=== PATIENT | male | born 1990 | race Caucasian/White ===

== ENCOUNTER 2020-11-06 08:57 | Outpatient (REF) | payer OTHER, SELFPAY ==
[2020-11-06 10:14] LABS: Glucose Urine UA NEG (NEG); Leukocyte Esterase Urine NEG (NEG); Nitrite Urine NEG (NEG); PH 7.5 (5.0-8.0); Urine Blood NEG (NEG); Urine Ketones NEG (NEG); Urine Protein NEG (NEG-TRACE)
[2020-11-06 10:15] LABS: Appearance Urine CLEAR; Color Urine STRAW
[2020-11-06 10:26] LABS: Anion Gap 10 (12-20); Blood Urea Nitrogen 13 mg/dL (9-16); Carbon Dioxide 27 mmol/L (22-29); Chloride 104 mmol/L (96-108); Cholesterol 194 mg/dL; Estimated Glomerular Filt Rate > 60; Glucose Random 94 mg/dL (60-115); HDL Cholesterol 36 mg/dL; LDL Cholesterol Calculated 137 mg/dl; Potassium 4.2 mmol/L (3.3-5.1); Sodium 137 mmol/L (135-145); Triglycerides 105 mg/dL
[2020-11-06 10:48] LABS: TSH reflex Free T4 0.72 uIU/mL (0.32-4.0)
== END 2020-11-06 08:58 | disposition home or self-care (01) ==
LOC: HO.LAB 08:57
PROVIDERS: PCP Nurse Practitioner Family; Visit Provider Nurse Practitioner Family
DX: Z00.00 Encounter for general adult medical examination without abnormal findings (principal)
CPT/HCPCS: 36415; 80048; 80061; 81003; 84443

== ENCOUNTER 2021-01-08 07:33 | Outpatient (REF) | payer OTHER, SELFPAY ==
[2021-01-08 08:31] LABS: Basophils Percent Auto 0.4 % (0-2); Eosinophils Absolute Auto 0.1 X10*3/uL (0.0-0.4); Eosinophils Percent Auto 1.9 % (0-4); Hematocrit 42.7 % (42-52); Hemoglobin 14.9 g/dl (14.0-18.0); Imm Gran Abs Auto 0.02 X10*3/uL (0.00-0.03); Imm Gran Pct Auto 0.4 % (0.0-0.4); Lymphocytes Absolute Auto 1.8 X10*3/uL (1.2-4.9); Lymphocytes Percent Auto 34.8 % (20-40); MANUAL DIFF FLAG NO; Mean Corpuscular HGB Conc 34.9 g/dl (31.0-36.0); Mean Corpuscular Hemoglobin 27.9 pg (27.0-33.0); Mean Corpuscular Volume 79.8 fL (80-98); Mean Platelet Volume 9.2 fL (9.4-12.4); Monocytes Absolute Auto 0.7 X10*3/uL (0.1-1.2); Monocytes Percent Auto 13.7 % (2-11); Neutrophils Absolute Auto 2.5 X10*3/uL (2.0-8.3); Neutrophils Percent Auto 48.8 % (45-73); Platelet Count 225 X10*3/uL (160-400); Red Blood Count 5.35 X10*6/uL (4.60-5.80); Red Cell Distribution Width 12.2 % (11.0-16.0); White Blood Count 5.2 X10*3/uL (4.8-10.8)
[2021-01-08 09:21] LABS: Alanine Aminotransferase 82 U/L (0-40); Albumin Level 4.3 g/dL (3.5-5.0); Alkaline Phosphatase 66 U/L (39-117); Anion Gap 11 (12-20); Aspartate Amino Transferase 38 U/L (5-37); Bilirubin Total 1.1 mg/dL (0.0-1.0); Blood Urea Nitrogen 12 mg/dL (9-16); Carbon Dioxide 28 mmol/L (22-29); Chloride 104 mmol/L (96-108); Estimated Glomerular Filt Rate > 60; Glucose Random 99 mg/dL (60-115); Lipase 33 U/L (8-78); Potassium 4.1 mmol/L (3.3-5.1); Sodium 139 mmol/L (135-145); Total Protein 7.2 g/dL (6.5-8.0)
== END 2021-01-08 07:34 | disposition home or self-care (01) ==
LOC: HO.LAB 07:33
PROVIDERS: PCP Nurse Practitioner Family; Visit Provider Hospitalist
DX: R10.32 Left lower quadrant pain (principal)
CPT/HCPCS: 36415; 80053; 83690; 85025

== ENCOUNTER 2021-01-26 06:04 | Outpatient (REF) | payer OTHER, SELFPAY ==
--- NOTE | ~2021-01-26 | CT_ITS ---
EXAMINATION: CT ABDOMEN AND PELVIS WITH CONTRAST CLINICAL INFORMATION: Left lower quadrant pain COMPARISON: None TECHNIQUE: Multidetector volumetric images were obtained from the superior aspect of the liver through the pubic symphysis following administration 85 mL of Omnipaque 350 intravenous contrast. Sagittal and coronal reformatted images were obtained on the technologist's workstation. Oral contrast: Yes This CT examination was performed using dose optimization techniques as appropriate, variously including the following: *Automated exposure control *Adjustment of mA and/or kV according to patient size (this includes techniques or standardized protocols for targeted exams where dose is matched to indication/reason for exam; i.e. extremities or head) *Use of iterative reconstruction technique DLP: 821 mGy-cm FINDINGS: LUNG BASES: The visualized lung bases are unremarkable. LIVER, GALLBLADDER, AND BILIARY TREE: The liver is normal in size, shape, and attenuation. No focal hepatic lesion or biliary ductal dilatation is present. The gallbladder is unremarkable with no evidence of radiopaque gallstones, gallbladder wall thickening, or obvious pericholecystic inflammatory changes. PANCREAS: Unremarkable. SPLEEN: The spleen is slightly enlarged measuring 14 cm in length. ADRENAL GLANDS: Unremarkable. KIDNEYS AND URETERS: The kidneys are normal in size, shape, and attenuation. No hydronephrosis, hydroureter, or calculi seen. No perinephric stranding. BLADDER: Unremarkable. GASTROINTESTINAL TRACT: The small and large bowel are unremarkable. The appendix is unremarkable. ABDOMINAL WALL: There is a small umbilical hernia containing fat. LYMPH NODES: Normal. VASCULAR: Unremarkable. PELVIC VISCERA: Unremarkable. OSSEOUS STRUCTURES: Unremarkable. CT/CT abdomen pelvis w con IMPRESSION: Slightly enlarged spleen measuring 14 cm in length. Small umbilical hernia containing fat..
[2021-01-26] MEDS: iohexoL 350 MG/ML 100 ML INFUS..BTL IV (09:33)
[2021-01-26] MEDS: Barium Sulfate Oral (Mocha) 450 ML ORAL.SUSP 900 ML PO (09:34)
== END 2021-01-26 06:05 | disposition home or self-care (01) ==
LOC: HO.CT 06:04
PROVIDERS: Visit Provider Hospitalist
DX: R10.32 Left lower quadrant pain (principal)
CPT/HCPCS: 74177; Q9967

== ENCOUNTER 2021-07-09 07:22 | Outpatient (REF) | payer OTHER, SELFPAY ==
[2021-07-09 07:41] LABS: Appearance Urine CLEAR; Color Urine YELLOW; Glucose Urine UA NEG (NEG); Leukocyte Esterase Urine NEG (NEG); Nitrite Urine NEG (NEG); Specific Gravity - Urine 1.015 (1.005-1.025); Urine Blood NEG (NEG); Urine Ketones NEG (NEG); Urine Protein NEG (NEG-TRACE)
[2021-07-09 09:18] LABS: Alanine Aminotransferase 87 U/L (0-40); Albumin Level 4.4 g/dL (3.5-5.0); Alkaline Phosphatase 68 U/L (39-117); Anion Gap 10 (12-20); Aspartate Amino Transferase 33 U/L (5-37); Bilirubin Total 0.7 mg/dL (0.0-1.0); Blood Urea Nitrogen 13 mg/dL (9-16); Calcium 8.6 mg/dL (8.4-10.2); Carbon Dioxide 29 mmol/L (22-29); Chloride 104 mmol/L (96-108); Cholesterol 169 mg/dL; Estimated Glomerular Filt Rate > 60; Glucose Fasting 95 mg/dL (60-99); HDL Cholesterol 30 mg/dL; LDL Cholesterol Calculated 114 mg/dl; Potassium 4.3 mmol/L (3.3-5.1); Sodium 139 mmol/L (135-145); Total Protein 7.1 g/dL (6.5-8.0); Triglycerides 127 mg/dL
[2021-07-09 09:43] LABS: TSH reflex Free T4 1.05 uIU/mL (0.32-4.0)
== END 2021-07-09 07:23 | disposition home or self-care (01) ==
LOC: HO.LAB 07:22
PROVIDERS: PCP Nurse Practitioner Family; Visit Provider Nurse Practitioner Family
DX: Z00.00 Encounter for general adult medical examination without abnormal findings (principal)
CPT/HCPCS: 36415; 80053; 80061; 81003; 84443

== ENCOUNTER 2021-07-23 08:56 | Outpatient (REF) | payer OTHER, SELFPAY ==
[2021-07-25 03:42] LABS: HBS Num1 3.84 mIU/mL (0-7.99); HBc Num1 0.09 S/CO (0.00-0.79); HBsAGNum1 0.17 S/CO (0.00-0.99); Hepatitis B Core Antibody Nonreactive (Nonreactive); Hepatitis B Surface Antigen Negative (Negative); ~Hepatitis B Surface Antibody NONREACTIVE (Nonreactive)
[2021-07-25 03:52] LABS: ~HepC Num1 0.08 S/CO (0.00-0.79); ~Hepatitis C Antibody Nonreactive (Nonreactive)
[2021-07-25 04:31] LABS: Folate 16.7 ng/mL (> or = 4.0); Vitamin B12 320 pg/mL (200-900)
[2021-07-27 09:09] LABS: Hepatitis A Antibody IgM 0.13 Index (0-0.79); ~Hepatitis A Antibody IgM Nonreactive (Nonreactive)
== END 2021-07-23 08:57 | disposition home or self-care (01) ==
LOC: HO.LAB 08:56
PROVIDERS: PCP Nurse Practitioner Family; Visit Provider Nurse Practitioner Family
DX: R74.8 Abnormal levels of other serum enzymes (principal); E53.8 Deficiency of other specified B group vitamins
CPT/HCPCS: 36415; 82607; 82746; 86704; 86706; 86709; 86803; 87340

== ENCOUNTER 2021-08-12 08:26 | Outpatient (REF) | payer OTHER, SELFPAY ==
--- NOTE | ~2021-08-12 | US_ITS ---
EXAMINATION: US ABDOMEN COMPLETE CLINICAL INFORMATION: Elevated liver enzymes. COMPARISON: None TECHNIQUE: Real-time imaging of the abdominal viscera. FINDINGS: PANCREAS: Normal. ABDOMINAL AORTA: The proximal, mid, and distal segments are normal in caliber. INFERIOR VENA CAVA: Visualized portions are normal. LIVER: Normal. The liver is normal in size. The liver contour is normal. Parenchymal echogenicity is normal. No focal hepatic lesion. There is no intrahepatic biliary duct dilatation seen. GALLBLADDER: There is an impacted stone in the neck of the gallbladder measuring 1.7 x 1.3 x 1.8 cm. The gallbladder is otherwise unremarkable in appearance with no wall thickening or pericholecystic fluid. COMMON BILE DUCT: Normal in caliber measuring 0.3 cm in diameter. RIGHT KIDNEY: Normal. No hydronephrosis. No renal calculi or focal parenchymal lesions. The kidney measures 12.1 cm in maximum dimension. LEFT KIDNEY: Normal. No hydronephrosis. No renal calculi or focal parenchymal lesions. The kidney measures 13.1 cm in maximum dimension. SPLEEN: Normal. The spleen measures 12.9 cm in maximum dimension. FREE FLUID: None. US/US abdomen complete IMPRESSION: 1. Cholelithiasis with single gallstone impacted in the gallbladder neck. No evidence for acute cholecystitis. 2. No other abnormality.
== END 2021-08-12 08:27 | disposition home or self-care (01) ==
LOC: HO.HMGCX 08:26
PROVIDERS: PCP Nurse Practitioner Family; Visit Provider Nurse Practitioner Family
DX: R74.8 Abnormal levels of other serum enzymes (principal)
CPT/HCPCS: 76700

== ENCOUNTER → 2021-09-19 15:46 | Outpatient (BNVA) | payer OTHER, SELFPAY | PROVIDERS: PCP Nurse Practitioner Family; Referring Provider Nurse Practitioner Family; Visit Provider Surgery ==

== ENCOUNTER 2021-10-15 08:08 | Outpatient (REF) | payer OTHER, SELFPAY ==
[2021-10-15 08:38] LABS: MANUAL DIFF FLAG NO
[2021-10-15 09:47] LABS: Basophils Percent Auto 0.4 % (0-2); Eosinophils Absolute Auto 0.1 X10*3/uL (0.0-0.4); Eosinophils Percent Auto 2.1 % (0-4); Hematocrit 43.5 % (42.0-52.0); Imm Gran Abs Auto 0.02 X10*3/uL (0.00-0.03); Imm Gran Pct Auto 0.3 % (0.0-0.4); Lymphocytes Absolute Auto 2.3 X10*3/uL (1.2-4.9); Lymphocytes Percent Auto 33.3 % (20-40); Mean Corpuscular HGB Conc 34.5 g/dl (31.0-36.0); Mean Corpuscular Hemoglobin 27.9 pg (27.0-33.0); Mean Platelet Volume 9.2 fL (9.4-12.4); Monocytes Absolute Auto 0.8 X10*3/uL (0.1-1.2); Monocytes Percent Auto 12.4 % (2-11); Neutrophils Absolute Auto 3.5 x10*3/uL (2.0-8.3); Neutrophils Percent Auto 51.5 % (45-73); Platelet Count 210 X10*3/uL (160-400); Red Blood Count 5.37 X10*6/uL (4.60-5.80); Red Cell Distribution Width 12.2 % (11.0-16.0); White Blood Count 6.8 X10*3/uL (4.8-10.8)
[2021-10-15 10:15] LABS: Alanine Aminotransferase 29 U/L (0-40); Albumin Level 4.1 g/dL (3.5-5.0); Alkaline Phosphatase 62 U/L (39-117); Anion Gap 11 (12-20); Aspartate Amino Transferase 16 U/L (5-37); Bilirubin Total 0.5 mg/dL (0.0-1.0); Blood Urea Nitrogen 13 mg/dL (9-16); Calcium 9.1 mg/dL (8.4-10.2); Carbon Dioxide 26 mmol/L (22-29); Chloride 105 mmol/L (96-108); Estimated Glomerular Filt Rate > 60; Glucose Fasting 93 mg/dL (60-99); Lipase 23 U/L (8-78); Potassium 4.2 mmol/L (3.3-5.1); Sodium 138 mmol/L (135-145); Total Protein 6.9 g/dL (6.5-8.0)
[2021-10-17 09:38] LABS: Folate 14.6 ng/mL (> or = 4.0); Vitamin B12 286 pg/mL (200-900)
== END 2021-10-15 08:09 | disposition home or self-care (01) ==
LOC: HO.LAB 08:08
PROVIDERS: Visit Provider Nurse Practitioner Family
DX: K80.20 Calculus of gallbladder without cholecystitis without obstruction (principal); E53.8 Deficiency of other specified B group vitamins
CPT/HCPCS: 36415; 80053; 82607; 82746; 83690; 85025

== ENCOUNTER 2022-02-11 08:19 | Outpatient (REF) | payer OTHER, SELFPAY ==
[2022-02-11 09:30] LABS: Appearance Urine CLEAR; Color Urine YELLOW; Glucose Urine UA NEG (NEG); Leukocyte Esterase Urine NEG (NEG); Nitrite Urine NEG (NEG); Specific Gravity - Urine 1.015 (1.005-1.025); Urine Blood NEG (NEG); Urine Ketones NEG (NEG); Urine Protein NEG (NEG-TRACE)
[2022-02-11 09:30] LABS: Alanine Aminotransferase 68 U/L (0-40); Alkaline Phosphatase 61 U/L (39-117); Anion Gap 10 (12-20); Aspartate Amino Transferase 27 U/L (5-37); Bilirubin Total 0.8 mg/dL (0.0-1.0); Blood Urea Nitrogen 12 mg/dL (9-16); Calcium 8.9 mg/dL (8.4-10.2); Carbon Dioxide 27 mmol/L (22-29); Chloride 105 mmol/L (96-108); Cholesterol 179 mg/dL; Estimated Glomerular Filt Rate > 60; Glucose Fasting 100 mg/dL (60-99); HDL Cholesterol 31 mg/dL; LDL Cholesterol Calculated 116 mg/dl; Potassium 4.2 mmol/L (3.3-5.1); Sodium 138 mmol/L (135-145); Total Protein 6.8 g/dL (6.5-8.0); Triglycerides 164 mg/dL
[2022-02-11 09:53] LABS: TSH reflex Free T4 0.82 uIU/mL (0.32-4.0)
[2022-02-13 16:32] LABS: Follicle Stimulating Hormone 4.4 mIU/mL (1.6-8.0); Lutenizing Hormone 2.6 mIU/mL (1.5-9.3)
[2022-02-16 19:27] LABS: Testosterone, Free 69.7 pg/mL (35.0-155.0); Testosterone, Total 335 ng/dL (250-1100)
== END 2022-02-11 08:20 | disposition home or self-care (01) ==
LOC: HO.LAB 08:19
PROVIDERS: PCP Nurse Practitioner Family; Visit Provider Nurse Practitioner Family
DX: I10 Essential (primary) hypertension (principal); N52.9 Male erectile dysfunction, unspecified
CPT/HCPCS: 36415; 80053; 80061; 81003; 83001; 83002; 84402; 84403; 84443

== ENCOUNTER 2022-07-15 08:51 | Outpatient (REF) | payer OTHER, SELFPAY ==
[2022-07-15 09:43] LABS: MANUAL DIFF FLAG NO
[2022-07-15 10:30] LABS: Appearance Urine Clear; Color Urine Yellow; Glucose Urine UA Negative (Negative); Leukocyte Esterase Urine Negative (Negative); Nitrite Urine Negative (Negative); PH 6.5 (5.0-9.0); Specific Gravity - Urine 1.015 (1.005-1.025); Urine Blood Negative (Negative); Urine Ketones Negative (Negative); Urine Protein Negative (Neg-Trace)
[2022-07-15 11:27] LABS: Basophils Percent Auto 0.4 % (0-2); Eosinophils Absolute Auto 0.1 X10*3/uL (0.0-0.4); Eosinophils Percent Auto 2.4 % (0-4); Hemoglobin 14.6 g/dl (14.0-18.0); Imm Gran Abs Auto 0.02 X10*3/uL (0.00-0.03); Imm Gran Pct Auto 0.4 % (0.0-0.4); Lymphocytes Absolute Auto 1.8 X10*3/uL (1.2-4.9); Lymphocytes Percent Auto 33.3 % (20-40); Mean Corpuscular HGB Conc 35.6 g/dl (31.0-36.0); Mean Corpuscular Hemoglobin 28.2 pg (27.0-33.0); Mean Corpuscular Volume 79.3 fL (80.0-98.0); Mean Platelet Volume 9.2 fL (9.4-12.4); Monocytes Absolute Auto 0.8 X10*3/uL (0.1-1.2); Monocytes Percent Auto 14.1 % (2-11); Neutrophils Absolute Auto 2.7 x10*3/uL (2.0-8.3); Neutrophils Percent Auto 49.4 % (45-73); Platelet Count 224 X10*3/uL (160-400); Red Blood Count 5.17 X10*6/uL (4.60-5.80); White Blood Count 5.4 X10*3/uL (4.8-10.8)
[2022-07-15 12:50] LABS: Alanine Aminotransferase 35 U/L (0-40); Albumin Level 4.2 g/dL (3.5-5.0); Alkaline Phosphatase 61 U/L (39-117); Anion Gap 14 (12-20); Aspartate Amino Transferase 23 U/L (5-37); Bilirubin Total 0.7 mg/dL (0.0-1.0); Blood Urea Nitrogen 14 mg/dL (9-16); Calcium 8.8 mg/dL (8.4-10.2); Carbon Dioxide 26 mmol/L (22-29); Chloride 103 mmol/L (96-108); Cholesterol 190 mg/dL; Estimated Glomerular Filt Rate > 60; Glucose Fasting 93 mg/dL (60-99); HDL Cholesterol 34 mg/dL; LDL Cholesterol Calculated 129 mg/dl; Sodium 139 mmol/L (135-145); Triglycerides 137 mg/dL
[2022-07-15 12:54] LABS: TSH reflex Free T4 1.26 uIU/mL (0.32-4.0)
== END 2022-07-15 08:52 | disposition home or self-care (01) ==
LOC: HO.LAB 08:51
PROVIDERS: PCP Nurse Practitioner Family; Visit Provider Nurse Practitioner Family
DX: Z00.00 Encounter for general adult medical examination without abnormal findings (principal)
CPT/HCPCS: 36415; 80053; 80061; 81003; 84443; 85025

== ENCOUNTER 2022-11-26 07:11 | Emergency (ER) | payer OTHER, SELFPAY ==
--- NOTE | ~2022-11-26 | US_ITS ---
EXAMINATION: US ABDOMEN COMPLETE CLINICAL INFORMATION: Upper abdominal pain. COMPARISON: Ultrasound abdomen complete 08/12/2021. TECHNIQUE: Real-time imaging of the abdominal viscera. FINDINGS: PANCREAS: The pancreas is obscured by overlying gas. ABDOMINAL AORTA: The proximal, mid, and distal segments are normal in caliber. INFERIOR VENA CAVA: Visualized portions are normal. LIVER: Normal. The liver is normal in size. The liver contour is normal. Parenchymal echogenicity is normal. No focal hepatic lesion. There is no intrahepatic biliary duct dilatation seen. GALLBLADDER: There are multiple echogenic stones in the neck of gallbladder, nonmobile. Gallbladder wall thickness is 0.2 cm. There are small echogenic areas along the inner gallbladder wall suspicious for adenomyomatosis. No pericholecystic fluid collection. COMMON BILE DUCT: Normal in caliber measuring 0.5 cm in diameter. RIGHT KIDNEY: Normal. No hydronephrosis. No renal calculi or focal parenchymal lesions. The kidney measures 13.0 cm in maximum dimension. LEFT KIDNEY: Normal. No hydronephrosis. No renal calculi or focal parenchymal lesions. The kidney measures 13.3 cm in maximum dimension. SPLEEN: The spleen measures 14.3 cm in maximum dimension. It appears unremarkable. FREE FLUID: None. US/US abdomen complete IMPRESSION: 1. Cholelithiasis with an impacted stone in the neck of the gallbladder. Similar findings were seen on a previous ultrasound 08/12/2021. 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 2. Borderline spleen measuring 14.3 cm.
[2022-11-26 07:21] VITALS: BP 152/82; PULSE 110; RESP 18; TEMP 36.7; O2SAT 98; BMI 48.5
[2022-11-26 07:50] LABS: MANUAL DIFF FLAG NO
[2022-11-26 07:51] LABS: Basophils Percent Auto 0.1 % (0-2); Eosinophils Percent Auto 0.1 % (0-4); Hematocrit 41.6 % (42.0-52.0); Hemoglobin 14.4 g/dl (14.0-18.0); Imm Gran Abs Auto 0.03 X10*3/uL (0.00-0.03); Imm Gran Pct Auto 0.4 % (0.0-0.4); Lymphocytes Absolute Auto 1.1 X10*3/uL (1.2-4.9); Lymphocytes Percent Auto 14.5 % (20-40); Mean Corpuscular HGB Conc 34.6 g/dl (31.0-36.0); Mean Corpuscular Hemoglobin 27.4 pg (27.0-33.0); Mean Corpuscular Volume 79.1 fL (80.0-98.0); Mean Platelet Volume 8.7 fL (9.4-12.4); Monocytes Absolute Auto 1.1 X10*3/uL (0.1-1.2); Monocytes Percent Auto 14.6 % (2-11); Neutrophils Absolute Auto 5.2 x10*3/uL (2.0-8.3); Neutrophils Percent Auto 70.3 % (45-73); Platelet Count 167 X10*3/uL (160-400); Red Blood Count 5.26 X10*6/uL (4.60-5.80); Red Cell Distribution Width 12.6 % (11.0-16.0); White Blood Count 7.5 X10*3/uL (4.8-10.8)
[2022-11-26 08:09] LABS: Anion Gap 13 (12-20); Blood Urea Nitrogen 14 mg/dL (9-16); Calcium 8.1 mg/dL (8.4-10.2); Carbon Dioxide 23 mmol/L (22-29); Chloride 106 mmol/L (96-108); Creatinine Clr Calc Pharmacy 174.9; Estimated Glomerular Filt Rate > 60; Glucose Random 121 mg/dL (60-115); Potassium 3.7 mmol/L (3.3-5.1); Sodium 138 mmol/L (135-145)
--- NOTE | 2022-11-26 08:10 | ED_ITS ---
HPI - Abdominal Pain General Chief Complaint: Abdominal Pain Stated Complaint: gallbladder issues Time Seen by Provider: 11/26/22 08:00 Source: patient and old records reviewed (Reviewed the patient's visit on 09/19/2021 here in the ER and the general surgical note from Dr. Cassidy) Mode of arrival: ambulatory Limitations: no limitations History of Present Illness HPI narrative: 32yoM with a PMHx of anemia, hypertension, low vitamin B12 level, obesity, sleep apnea and impacted gallstones without cholecystitis since July of 2021 who is presenting to the ER with complaints of nausea/vomiting with right upper quadrant/epigastric abdominal pain with diarrhea that started yesterday. Reports that he had a GI bug yesterday nausea vomiting has resolved at this time. He continues with some diarrhea today although the right upper quadrant/epigastric abdominal pain continues. He is concerned that it could be acute cholecystitis at this time. He admits to some sore throat and a dry cough. He denies any fevers, headaches, dizziness, nasal congestion/rhinorrhea, chest pain or shortness of breath, radiation of the abdominal pain, flank pain, dysuria, hematuria, black or bloody stools, constipation, recent travel or sick contacts or any other symptoms complaints or concerns at this time. MD elicited complaint: abdominal pain Pertinent past history: other (Impacted gallstones since July 2021) Onset (ago): day(s) (2) Pain Consistency: constant Location: epigastric and RUQ Severity: moderate Quality: aching Radiation: none Migration to: no migration Exacerbating factors: vomiting Relieving factors: nothing Associated symptoms: nausea, vomiting, diarrhea and other (Throat irritation dry cough) Related Data Home Medications Medication Instructions Recorded Confirmed cetirizine 10 mg tablet (Zyrtec) 10 mg PO DAILY PRN 07/10/22 Previous Rx's Medication Instructions Recorded lisinopril 40 mg tablet 40 mg PO DAILY 90 days #90 tabs 07/18/22 erythromycin 5 mg/gram (0.5 %) eye 1 appl ophthalmic-Right BID 5 days 10/14/22 ointment #3.5 grams sildenafil 25 mg tablet 25 mg PO DAILY PRN sexual activity 10/15/22 10 days #10 tabs acetaminophen 300 mg-codeine 30 mg 1 tab PO Q8H PRN pain #14 tabs 11/26/22 tablet ondansetron HCl 4 mg tablet 4 mg PO Q8H #14 tabs 11/26/22 Allergies Allergy/AdvReac Type Severity Reaction Status Date / Time No Known Allergies Allergy Verified 10/14/22 11:33 Review of Systems Review of Systems Constitutional : No Fever, No Chills, No Night Sweats, No Fatigue, No Malaise, + throat irritation from vomiting, Cardiovascular : No Chest Pain, No SOB Respiratory : + Cough, No Sputum, No Wheezing, No Dyspnea Gastrointestinal : + Nausea, + Vomiting, + Diarrhea, + abdominal Pain, No Hematochezia, No Melena Genitourinary : No irregular bleeding, No Dysuria, No Urinary Frequency, No Hematuria,No Urinary Incontinence, No Urgency, No Flank Pain Musculoskeletal : No joint pain, No Myalgias, No Joint Swelling Skin : No Skin Lesions, No rash Neuro : No Weakness, No Numbness, No Paresthesias, No Loss of Consciousness, No Dizziness, No Headache Heme/Lymph: No Lymphadenopathy Endocrine : No Temperature Intolerance Yes all other systems are reviewed and are negative [facility] Past Medical History Attestation statement: The following information was validated with the patient. Source: old records reviewed and nursing notes reviewed Medical History Anemia Gallstone (impacted) Gallstones HTN (hypertension) Low vitamin B12 level Obesity Sleep apnea Surgical History Cysts Hernia Family History Family History Father No problems noted. Mother No problems noted. Brother No problems noted. 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 Pulse 110. Respiration 18. Temperature 98.1 degrees. Oxygen 98% on room air. Appearance: Alert. Oriented X3. No acute distress. Head: Normal external exam. Normocephalic. Eyes: PERRLA. EOMI. Conjunctiva and sclera normal. Eyelids normal. ENT: Pharynx normal. Uvula midline. Moist mucous membranes. No trismus noted. No drooling noted. No muffled voice noted. Neck: Normal inspection. Neck supple. FROM. No adenopathy. No meningeal signs. CVS: Normal heart rate and rhythm. Heart sound normal. No murmurs noted. Pulses normal throughout. Respiratory: No respiratory distress. Painless inspiration. Breath sounds normal. No wheezes/rales/rhonchi noted. Chest nontender. No accessory muscle usage noted or decreased air movement noted. Abdomen: Soft and mild tenderness palpation to the epigastric/right upper quadrant with guarding. Nondistended. No rigidity. Bowel sounds normal in all 4 quadrants. No distention noted. No organomegaly noted. No visible injury noted. No rebound tenderness. Negative Rovsing sign. Negative obturator's sign. Negative psoas sign. Negative Trejo sign. Back: No CVA tenderness. Full range of motion noted. Skin: Skin warm and dry. Normal skin color. Normal skin turgor. No rashes/lesions/lacerations noted. Extremities: Extremities exhibit normal range of motion. Extremities nontender. Neuro: Oriented X 3. No motor deficit. No sensory deficit. Reflexes normal. Normal steady gait. CN's II-XII intact bilaterally? Course Course Course Narrative: 8am - 32yoM with a PMHx of anemia, hypertension, low vitamin B12 level, obesity, sleep apnea and impacted gallstones without cholecystitis since July of 2021 who is presenting to the ER with complaints of nausea/vomiting with right upper quadrant/epigastric abdominal pain with diarrhea that started yesterday. Reports that he had a GI bug yesterday nausea vomiting has resolved at this time. He continues with some diarrhea today although the right upper quadrant/epigastric abdominal pain continues. He is concerned that it could be acute cholecystitis at this time. He admits to some sore throat and a dry cough. This patient presents with abdominal pain, most consistent with acute, uncom plicated biliary colic versus acute cholecystitis. Patient is afebrile and not jaundiced or altered, lowering my suspicion for cholangitis. Presentation not consistent with acute pancreatitis at this time. Low suspicion for bowel obstruction, viscus perforation, vascular catastrophe, or atypical appendicitis. Presentation not consistent with other acute, emergent causes of abdominal pain at this time. Labs were obtained while the patient was in the waiting room - random glucose 121. - calcium 8.1. - total bilirubin 1.2 this is elevated when compared to prior - CRP 11.23 - total protein 6.3 Otherwise all other labs are within normal limits although I added LFTs, lipase, ESR, CRP and UA. At this time Plan for formal RUQ U/S to evaluate gallbladder pathology. Reevaluation(s) Reevaluation #1: Abdominal ultrasound revealed cholelithiasis with the impacted stone in the neck of the gallbladder. Similar is were seen on previous ultrasound on 08/12/2021. 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 2. Borderline spleen measuring 14.3 cm. Therefore I consulted with the general surgeon Dr. Arciniega and she recommended discharging the patient home for outpatient nonemergent gallbladder removal. I also educated the patient about obesity and following up with bariatric surgeon although patient is not interested in bariatric surgery or any type of weight loss surgery he reports. Therefore at this time patient's pain is controlled I did not have to give him here anything for pain will DC home with some pain control and with instructions to follow-up with the general surgeon Dr. Cassidy for outpatient gallbladder removal if indicated. Patient understands agrees with this plan. Time: 12:13 Medical Decision Making Differential Diagnosis Differential Diagnoses: The differential diagnosis associated with the presentation includes (see course) Admission/Observation Consideration of admission/observation: Escalation of care including ad mission/observation considered (I did consider admission although the general surgeon does not believe he needs admission at this time due to he has been dealing with this since July and it is not acute cholecystitis at this time.) Lab Data MDM Lab Attestation statement: I reviewed the patient's lab results. 11/26/22 07:46 11/26/22 07:46 Labs: Lab Results 11/26/22 11/26/22 11/26/22 Range/Units 07:46 07:46 07:46 WBC 7.5 (4.8-10.8) X10*3/uL RBC 5.26 (4.60-5.80) X10*6/uL Hgb 14.4 (14.0-18.0) g/dl Hct 41.6 L (42.0-52.0) % MCV 79.1 L (80.0-98.0) fL MCH 27.4 (27.0-33.0) pg MCHC 34.6 (31.0-36.0) g/dl RDW 12.6 (11.0-16.0) % Plt Count 167 D (160-400) X10*3/uL MPV 8.7 L (9.4-12.4) fL Immature Gran % (Auto) 0.4 (0.0-0.4) % Neut % (Auto) 70.3 (45-73) % Lymph % (Auto) 14.5 L (20-40) % [place] % (Auto) 14.6 H (2-11) % Eos % (Auto) 0.1 (0-4) % Baso % (Auto) 0.1 (0-2) % Lymph # (Auto) 1.1 L (1.2-4.9) X10*3/uL [place] # (Auto) 1.1 (0.1-1.2) X10*3/uL Eos # (Auto) 0.0 (0.0-0.4) X10*3/uL Baso # (Auto) 0.0 (0.0-0.2) X10*3/uL Abs Immat Gran (auto) 0.03 (0.00-0.03) X10*3/uL Absolute Neuts (auto) 5.2 (2.0-8.3) x10*3/uL Absolute Nucleated RBC 0.000 (0.0-0.012) X10*3/uL Nucleated RBC % (auto) 0.0 (0.0-0.2) /100WBC ESR 8 (0-15) MM/HR Sodium 138 (135-145) mmol/L Potassium 3.7 (3.3-5.1) mmol/L Chloride 106 (96-108) mmol/L Carbon Dioxide 23 (22-29) mmol/L Anion Gap 13 (12-20) BUN 14 (9-16) mg/dL Creatinine 0.83 (0.5-1.4) mg/dL Estim Creat Clear Calc 174.9 Estimated GFR > 60 Random Glucose 121 H (60-115) mg/dL Calcium 8.1 L D (8.4-10.2) mg/dL Magnesium 1.6 (1.6-2.6) mg/dL Total Bilirubin 1.2 H (0.0-1.0) mg/dL Direct Bilirubin 0.4 (0.0-0.5) mg/dL AST 21 (5-37) U/L ALT 30 (0-40) U/L Alkaline Phosphatase 57 (39-117) U/L C-Reactive Protein 11.23 H (< or = 0.50) mg/dL Total Protein 6.3 L (6.5-8.0) g/dL Albumin 3.7 (3.5-5.0) g/dL Lipase 13 (8-78) U/L Urine Color Urine Appearance Urine pH (5.0-9.0) Ur Specific [place] (1.005-1.025) Urine Protein (Neg-Trace) mg/dL Urine Glucose (UA) (Negative) mg/dL Urine Ketones (Negative) mg/dL Urine Blood (Negative) Urine Nitrite (Negative) Ur Leukocyte Esterase (Negative) Influenza Type A (PCR) (Negative) Influenza Type B (PCR) (Negative) RSV RNA Qual (PCR) (Negative) SARS-CoV-2 RNA (RT-PCR) (Negative) 11/26/22 11/26/22 Range/Units 08:29 08:29 WBC (4.8-10.8) X10*3/uL RBC (4.60-5.80) X10*6/uL Hgb (14.0-18.0) g/dl Hct (42.0-52.0) % MCV (80.0-98.0) fL MCH (27.0-33.0) pg MCHC (31.0-36.0) g/dl RDW (11.0-16.0) % Plt Count (160-400) X10*3/uL MPV (9.4-12.4) fL Immature Gran % (Auto) (0.0-0.4) % Neut % (Auto) (45-73) % Lymph % (Auto) (20-40) % [place] % (Auto) (2-11) % Eos % (Auto) (0-4) % Baso % (Auto) (0-2) % Lymph # (Auto) (1.2-4.9) X10*3/uL [place] # (Auto) (0.1-1.2) X10*3/uL Eos # (Auto) (0.0-0.4) X10*3/uL Baso # (Auto) (0.0-0.2) X10*3/uL Abs Immat Gran (auto) (0.00-0.03) X10*3/uL Absolute Neuts (auto) (2.0-8.3) x10*3/uL Absolute Nucleated RBC (0.0-0.012) X10*3/uL Nucleated RBC % (auto) (0.0-0.2) /100WBC ESR (0-15) MM/HR Sodium (135-145) mmol/L Potassium (3.3-5.1) mmol/L Chloride (96-108) mmol/L Carbon Dioxide (22-29) mmol/L Anion Gap (12-20) BUN (9-16) mg/dL Creatinine (0.5-1.4) mg/dL Estim Creat Clear Calc Estimated GFR Random Glucose (60-115) mg/dL Calcium (8.4-10.2) mg/dL Magnesium (1.6-2.6) mg/dL Total Bilirubin (0.0-1.0) mg/dL Direct Bilirubin (0.0-0.5) mg/dL AST (5-37) U/L ALT (0-40) U/L Alkaline Phosphatase (39-117) U/L C-Reactive Protein (< or = 0.50) mg/dL Total Protein (6.5-8.0) g/dL Albumin (3.5-5.0) g/dL Lipase (8-78) U/L Urine Color Yellow Urine Appearance Clear Urine pH 6.5 (5.0-9.0) Ur Specific [place] <= 1.005 (1.005-1.025) Urine Protein Negative (Neg-Trace) mg/dL Urine Glucose (UA) Negative (Negative) mg/dL Urine Ketones Negative (Negative) mg/dL Urine Blood Negative (Negative) Urine Nitrite Negative (Negative) Ur Leukocyte Esterase Negative (Negative) Influenza Type A (PCR) NEGATIVE (Negative) Influenza Type B (PCR) NEGATIVE (Negative) RSV RNA Qual (PCR) NEGATIVE (Negative) SARS-CoV-2 RNA (RT-PCR) NEGATIVE (Negative) Independent Interpretation I performed an independent interpretation of an: Ultrasound (Ultrasound reviewed and I agree with the radiologist's report) Radiology Impression Discussion of test interpretation with radiology: I have reviewed the radiologist's reading. Radiologist Impression: FINDINGS: PANCREAS: The pancreas is obscured by overlying gas. ABDOMINAL AORTA: The proximal, mid, and distal segments are normal in caliber. INFERIOR VENA CAVA: Visualized portions are normal. LIVER: Normal. The liver is normal in size. The liver contour is normal. Parenchymal echogenicity is normal. No focal hepatic lesion. There is no intrahepatic biliary duct dilatation seen. GALLBLADDER: There are multiple echogenic stones in the neck of gallbladder, nonmobile. Gallbladder wall thickness is 0.2 cm. There are small echogenic areas along the inner gallbladder wall suspicious for adenomyomatosis. No pericholecystic fluid collection. COMMON BILE DUCT: Normal in caliber measuring 0.5 cm in diameter. RIGHT KIDNEY: Normal. No hydronephrosis. No renal calculi or focal parenchymal lesions. The kidney measures 13.0 cm in maximum dimension. LEFT KIDNEY: Normal. No hydronephrosis. No renal calculi or focal parenchymal lesions. The kidney measures 13.3 cm in maximum dimension. SPLEEN:? The spleen measures 14.3 cm in maximum dimension. It appears unremarkable. FREE FLUID: None. US/US abdomen complete IMPRESSION: 1. Cholelithiasis with an impacted stone in the neck of the gallbladder. Similar findings were seen on a previous ultrasound 08/12/2021. 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 ? 2. Borderline spleen measuring 14.3 cm. Independent Historian Clinical information obtained from an independent historian. History obtained from or confirmed by: Other (From patient) External Record Review External record reviewed: Office record, Outpatient record, Prior outpatient labs, Prior outpatient radiology, Primary care record and Outside ED record I reviewed all the patient's outpatient visits for his primary care walk-in and general surgical office visit notes all his labs and prior imaging were reviewed by myself Prescription Management I considered prescription management with: Pain Medication (I considered pain medication although patient declining at this time reports he feels comfortable) Chronic Conditions Patient?s care impacted by: Hypertension and Other (Impacted gallstones) Discharge Plan Discharge Clinical Impression: Cholelithiasis Patient Disposition: Home, Self-Care Instructions: Gallstones (ED) Prescriptions: New ondansetron HCl 4 mg tablet 4 mg PO Q8H Qty: 14 0RF acetaminophen-codeine 300-30 mg tablet 1 tab PO Q8H PRN (Reason: pain) Qty: 14 0RF No Action lisinopril 40 mg tablet 40 mg PO DAILY 90 Days Qty: 90 0RF sildenafil 25 mg tablet 25 mg PO DAILY PRN (Reason: sexual activity) 10 Days Qty: 10 0RF Rx Instructions: administer 30 minutes to 4 hours before activity cetirizine [Zyrtec] 10 mg tablet 10 mg PO DAILY PRN erythromycin 5 mg/gram (0.5 %) ointment 1 appl ophthalmic-Right BID 5 Days Qty: 3.5 0RF Referrals: Felipe Wilson FNP- [Primary Care Provider] - Toño Cassidy MD [Physician] - (Call to make a outpatient follow-up for your gallstones)
[2022-11-26 08:35] LABS: Appearance Urine Clear; Color Urine Yellow; Glucose Urine UA Negative (Negative); Leukocyte Esterase Urine Negative (Negative); Nitrite Urine Negative (Negative); PH 6.5 (5.0-9.0); Specific Gravity - Urine <= 1.005 (1.005-1.025); Urine Blood Negative (Negative); Urine Ketones Negative (Negative); Urine Protein Negative (Neg-Trace)
[2022-11-26 08:49] LABS: Alanine Aminotransferase 30 U/L (0-40); Albumin Level 3.7 g/dL (3.5-5.0); Alkaline Phosphatase 57 U/L (39-117); Aspartate Amino Transferase 21 U/L (5-37); Bilirubin Direct 0.4 mg/dL (0.0-0.5); Bilirubin Total 1.2 mg/dL (0.0-1.0); C Reactive Protein 11.23 mg/dL (< or = 0.50); Lipase 13 U/L (8-78); Magnesium 1.6 mg/dL (1.6-2.6); Total Protein 6.3 g/dL (6.5-8.0)
[2022-11-26 09:11] LABS: Erythrocyte Sedimentation Rate 8 MM/HR (0-15)
[2022-11-26 09:15] LABS: Influenza A PCR NEGATIVE (Negative); Influenza B PCR NEGATIVE (Negative); Resp Syncy Virus RNA Qual PCR NEGATIVE (Negative); SARS COV2 PCR INHOUSE NEGATIVE (Negative)
[2022-11-26 12:29] VITALS: BP 141/76; PULSE 99; RESP 16; TEMP 36.6; O2SAT 98
== END 2022-11-26 12:42 | disposition home or self-care (01) ==
PROVIDERS: Physician Assistant Medical; Emergency Provider Emergency Medicine; PCP Nurse Practitioner Family
DX: K80.20 Calculus of gallbladder without cholecystitis without obstruction (principal); Z20.822 Contact with and (suspected) exposure to COVID-19; Z20.828 Contact with and (suspected) exposure to other viral communicable diseases; Z79.899 Other long term (current) drug therapy
CPT/HCPCS: 0241U; 36415; 76700; 80048; 80076; 81003; 83690; 83735; 85025; 85652; 86140; 99283

== ENCOUNTER → 2022-11-30 10:55 | Outpatient (BNVA) | payer OTHER, SELFPAY | PROVIDERS: PCP Nurse Practitioner Family; Visit Provider Surgery | DX: Z13.89 Encounter for screening for other disorder (principal) ==

== ENCOUNTER 2023-03-01 09:26 | Outpatient (REF) | payer OTHER, SELFPAY ==
[2023-03-01 09:43] LABS: MANUAL DIFF FLAG NO
[2023-03-01 10:01] LABS: Basophils Percent Auto 0.3 % (0-2); Eosinophils Absolute Auto 0.1 X10*3/uL (0.0-0.4); Eosinophils Percent Auto 2.2 % (0-4); Hematocrit 44.8 % (42.0-52.0); Hemoglobin 15.3 g/dl (14.0-18.0); Imm Gran Abs Auto 0.02 X10*3/uL (0.00-0.03); Imm Gran Pct Auto 0.3 % (0.0-0.4); Lymphocytes Absolute Auto 2.2 X10*3/uL (1.2-4.9); Lymphocytes Percent Auto 33.8 % (20-40); Mean Corpuscular HGB Conc 34.2 g/dl (31.0-36.0); Mean Platelet Volume 8.7 fL (9.4-12.4); Monocytes Absolute Auto 0.8 X10*3/uL (0.1-1.2); Monocytes Percent Auto 12.3 % (2-11); Neutrophils Absolute Auto 3.3 x10*3/uL (2.0-8.3); Neutrophils Percent Auto 51.1 % (45-73); Platelet Count 241 X10*3/uL (160-400); Red Blood Count 5.67 X10*6/uL (4.60-5.80); Red Cell Distribution Width 12.8 % (11.0-16.0); White Blood Count 6.5 X10*3/uL (4.8-10.8)
[2023-03-01 10:31] LABS: Alanine Aminotransferase 48 U/L (0-40); Albumin Level 4.2 g/dL (3.5-5.0); Alkaline Phosphatase 75 U/L (39-117); Anion Gap 12 (12-20); Aspartate Amino Transferase 23 U/L (5-37); Bilirubin Total 0.8 mg/dL (0.0-1.0); Blood Urea Nitrogen 12 mg/dL (9-16); Calcium 9.4 mg/dL (8.4-10.2); Carbon Dioxide 26 mmol/L (22-29); Chloride 107 mmol/L (96-108); Cholesterol 194 mg/dL; Estimated Glomerular Filt Rate > 60; Glucose Fasting 100 mg/dL (60-99); HDL Cholesterol 32 mg/dL; LDL Cholesterol Calculated 138 mg/dl; Potassium 4.4 mmol/L (3.3-5.1); Sodium 141 mmol/L (135-145); Total Protein 7.2 g/dL (6.5-8.0); Triglycerides 122 mg/dL
[2023-03-01 10:58] LABS: Appearance Urine Clear; Color Urine Yellow; Glucose Urine UA Negative (Negative); Leukocyte Esterase Urine Negative (Negative); Nitrite Urine Negative (Negative); Specific Gravity - Urine 1.025 (1.005-1.025); Urine Blood Negative (Negative); Urine Ketones Negative (Negative); Urine Protein Negative (Neg-Trace)
[2023-03-01 11:03] LABS: Folate 17.2 ng/mL (> or = 4.0); TSH reflex Free T4 1.08 uIU/mL (0.32-4.0); Vitamin B12 311 pg/mL (200-900)
[2023-03-06 20:18] LABS: Intrinsic Factor Antibodies Negative (Negative)
[2023-03-08 13:19] LABS: Parietal Cell Antibody <=20.0 Unit (<=20.0)
== END 2023-03-01 09:27 | disposition home or self-care (01) ==
LOC: HO.LAB 09:26
PROVIDERS: PCP Nurse Practitioner Family; Visit Provider Nurse Practitioner Family
DX: E66.01 Morbid (severe) obesity due to excess calories (principal); E53.8 Deficiency of other specified B group vitamins; I10 Essential (primary) hypertension; G47.30 Sleep apnea, unspecified
CPT/HCPCS: 36415; 80053; 80061; 81003; 82607; 82746; 83516; 84443; 85025; 86340

== ENCOUNTER → 2023-03-09 07:57 | Outpatient (BNVA) | payer OTHER, SELFPAY | PROVIDERS: PCP Nurse Practitioner Family; Visit Provider Nurse Practitioner Family ==

== ENCOUNTER → 2023-03-13 08:31 | Outpatient (BNVA) | payer OTHER, SELFPAY | PROVIDERS: PCP Nurse Practitioner Family; Visit Provider Dietitian, Registered | DX: E66.01 Morbid (severe) obesity due to excess calories (principal); Z68.42 Body mass index [BMI] 45.0-49.9, adult | CPT/HCPCS: 97802 ==

== ENCOUNTER → 2023-04-02 20:30 | Outpatient (REF) | payer OTHER, SELFPAY | LOC: HO.SL 20:30 | PROVIDERS: PCP Nurse Practitioner Family; Visit Provider Nurse Practitioner Family | DX: G47.30 Sleep apnea, unspecified (principal); E66.01 Morbid (severe) obesity due to excess calories; R40.0 Somnolence; I10 Essential (primary) hypertension | CPT/HCPCS: 95810 ==

== ENCOUNTER → 2023-04-02 21:54 | Outpatient (BNV) | payer OTHER, SELFPAY | PROVIDERS: PCP Nurse Practitioner Family; Visit Provider Psychiatry & Neurology Neurology | DX: G47.33 Obstructive sleep apnea (adult) (pediatric) (principal) | CPT/HCPCS: 95810 ==

== ENCOUNTER 2023-04-30 11:24 | Outpatient (AMB) | payer OTHER, SELFPAY ==
[2023-04-30 11:49] VITALS: BMI 47.5
--- NOTE | 2023-04-30 11:49 | A.OFFVIS_ITS ---
Intake VS Expanded 04/30/23 11:49 Height 5 ft 7 in Weight 303 lb 9.224 oz BMI 47.5 Intake Visit Reasons: Obesity Allergies pollen Allergy (Severe, Uncoded 03/09/23 08:04) sneezing HPI Nutrition Presentation Details Pt present for MNT follow up for obesity Pt reports gradually making diet modifications. Reports recently starting to utilize CPap. Reports participating on exercises with a associate trainer 2 times a week for a month now. Having Hello FRESH meals 3 times/wk for variety and easiness to prepare meals. Including fish twice a week Most Recent Diabetes Results: Cholesterol 194 mg/dL 03/01/23 HDL Cholesterol 32 mg/dL 03/01/23 Triglycerides 122 mg/dL 03/01/23 Creatinine 0.93 mg/dL (0.5-1.4) 03/01/23 Blood Urea Nitrogen 12 mg/dL (9-16) 03/01/23 Sodium 141 mmol/L (135-145) 03/01/23 Potassium 4.4 mmol/L (3.3-5.1) 03/01/23 Chloride 107 mmol/L (96-108) 03/01/23 Carbon Dioxide 26 mmol/L (22-29) 03/01/23 Calcium 9.4 mg/dL (8.4-10.2) 03/01/23 AST 23 U/L (5-37) 03/01/23 ALT 48 U/L (0-40) H 03/01/23 Total Protein 7.2 g/dL (6.5-8.0) 03/01/23 Albumin 4.2 g/dL (3.5-5.0) 03/01/23 [facility] Medical History (Updated 03/09/23 @ 08:26 by Felix Pena CNP) Anemia Gallstone (impacted) Gallstones HTN (hypertension) Low vitamin B12 level Obesity Sleep apnea Surgical History (Updated 03/09/23 @ 08:06 by Navya Gomez [employer]) Cysts H/O hernia repair Hernia Family History Father No problems noted. Mother No problems noted. Brother No problems noted. 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 Current occupational exposures/hazards: No Cognitive needs: No Hearing needs: No Vision needs: No Assessment & Plan Assessment & Plan (1) Obesity, morbid, BMI 40.0-49.9: Code(s): E66.01 - Morbid (severe) obesity due to excess calories Plan wt: 137 kg (03/20/23) Est kcal needs as per MSJ: 2741 (40% carb, 30% protein/fat) Est fluid needs as per 25-30 ml/d: 3431- 4110 Est prot per day as per 1 g/kg bw: 137 Recommend fiber intake : 8-10 g per day and gradually increase to 35-38 g or as tolerated Recommend sodium intake per day : less than 2000 mg Educated patient on: ( R = reviewed V = verbalizes understanding N/R = needs review N/A = not applicable * Food sources of carbohydrate, adequate serving sizes and its role in various health conditions: R * Differences between complex carbohydrates a simple carbohydrates, role of fib er in diet: R * Protein source sof foods and benefits: R * Differences between types of fats and role in diet (mono on saturated fat fatty acids, saturated fatty acids, trans fats): R * Food sources of sodium in salt and healthy modifications for heart health in kidney health: NR * Vitamins and minerals: R * Healthy plate method concept: R V * Physical activity: Benefits a precaution: R * Patient Instructions: Continue working on reducing on fat intake (airfrying , try plant based cheese, remove skins, reduce on portion of fried starches goal weight loss 5 lbs by next follow up Coding Level of Care Code Nutr Indiv Subseq ([id number]) Diagnoses Obesity, morbid, BMI 40.0-49.9 E66.01 Time Spent (min) 20
== END 2023-04-30 12:08 | disposition home or self-care (01) ==
PROVIDERS: PCP Nurse Practitioner Family; Visit Provider Dietitian, Registered
DX: E66.01 Morbid (severe) obesity due to excess calories (principal)

== ENCOUNTER → 2023-04-30 11:24 | Outpatient (BNVA) | payer OTHER, SELFPAY | PROVIDERS: PCP Nurse Practitioner Family; Visit Provider Dietitian, Registered | DX: E66.01 Morbid (severe) obesity due to excess calories (principal); E66.9 Obesity, unspecified; E53.8 Deficiency of other specified B group vitamins; Z68.42 Body mass index [BMI] 45.0-49.9, adult; Z71.3 Dietary counseling and surveillance | CPT/HCPCS: 97803 ==

== ENCOUNTER 2023-05-31 07:57 | Outpatient (AMB) | payer OTHER, SELFPAY ==
--- NOTE | 2023-05-31 08:18 | A.OFFVIS_ITS ---
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 Pt underwent split night sleep study. The baseline portion of the study was significant for a severe degree of sleep apnea. The AHI was 34/hr and oxygen gautam was 89%. Pt trialed on CPAP [id number]. The breathing and oxygenation stabilized on CPAP at 19atO2T. The CPAP compliance and therapy response (05/01/23-05/30/23) reviewed. The usage days 28 days and the average usage hours 4 hrs. The AHI was 1.8/hr. Pt reports he could not use the CPAP enough due to his 's hand surgery. He needs to wake up early in the morning to help her. He sleeps better with CPAP, but the CPAP mask keep moving up while he sleep and needs to adjust frequently. He feels rested in the morning and more energized during daytime. [facility] Medical History (Updated 06/01/23 @ 08:21 by Felix Pena [facility]) Gallstones Gallstone (impacted) Sleep apnea Low vitamin B12 level Anemia HTN (hypertension) Obesity Surgical History (Updated 03/09/23 @ 08:06 by Navya Gomez CMA) H/O hernia repair Hernia Cysts Family History Father No problems noted. Mother No problems noted. Brother No problems noted. 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 [employer] Current occupational exposures/hazards: No Cognitive needs: No Hearing needs: No Vision needs: No Review of Systems Const All systems reviewed & are unremarkable except as noted in HPI and below ENT Reports Normal hearing present Neuro Reports Normal hearing present Physical Exam Vital Signs: Last Vital Signs Temp 96 F L 05/31/23 08:20 Pulse 75 05/31/23 08:20 BP 120/62 05/31/23 08:20 Pulse Ox 97 05/31/23 08:20 Oxygen Delivery Method Room Air 05/31/23 08:20 Const General: cooperative Nutritional Appearance: obese Orientation/consciousness: patient oriented x3 Resp Effort & Inspection: normal respiratory effort and able to speak in complete sentences Neuro General: patient oriented x3 and gait normal Cranial nerves: Yes Bilaterally intact EOM present, Yes Normal facial strength present, Yes Midline tongue present, Yes Symmetric palate elevation present, Yes Normal hearing present, Yes Ability to bilaterally rotate head present and Yes Ability to bilaterally elevate shoulders present Cognition (Neuro): normal cognition Assessment & Plan Assessment & Plan (1) Sleep apnea: Comment: Severe degree of sleep apena. The AHI was 34/hr and oxygen gautam was 89%. Code(s): G47.30 - Sleep apnea, unspecified Plan Continue to use CPAP at 35hnP3V as patient experiences good clinical effects. New CPAP mask fitting session advised and prescription given to patient. Stressed compliance, use CPAP nightly and more than 4 hrs. Wt reduction advised. Coding Level of Care Code Est Pt Level 3 (42650) Diagnoses Sleep apnea G47.30
[2023-05-31 08:20] VITALS: BP 120/62; PULSE 75; TEMP 35.5; O2SAT 97
== END 2023-05-31 08:33 | disposition home or self-care (01) ==
PROVIDERS: PCP Nurse Practitioner Family; Visit Provider Nurse Practitioner Family
DX: G47.30 Sleep apnea, unspecified (principal)
CPT/HCPCS: 99213

== ENCOUNTER → 2023-05-31 07:57 | Outpatient (BNVA) | payer OTHER, SELFPAY | PROVIDERS: PCP Nurse Practitioner Family; Visit Provider Nurse Practitioner Family | DX: E66.01 Morbid (severe) obesity due to excess calories (principal); G47.30 Sleep apnea, unspecified; R40.0 Somnolence; I10 Essential (primary) hypertension ==

== ENCOUNTER 2023-07-11 07:26 | Outpatient (AMB) | payer OTHER, SELFPAY ==
--- NOTE | 2023-07-11 07:30 | MHC.PC.OV ---
Vital Signs 07/11/23 07:36 Weight 316 lb BP 120/80 Blood Pressure Location Rt brachial Position Sitting Pulse 76 Pulse Source Pulse Oximeter Pulse Oximetry (%) 97 Oxygen Delivery Method Room Air Intake Visit Reasons: annual PE Allergies pollen Allergy (Severe, Uncoded 07/11/23 07:36) sneezing Medication List - Last Reconciled 07/11/23 by FADIA Lai-PRANAV cetirizine (Zyrtec) 10 mg PO DAILY PRN lisinopril 40 mg PO DAILY 90 days multivitamin (Daily Multi-Vitamin tablet) 1 tab PO DAILY sildenafil 25 mg PO DAILY PRN 10 days Tobacco use date assessed: 01/15/23 HPI annual PE HPI Details Pt is here for a PE. Will order labs. Pt has a hx of low B12, will assess with labs. Pt is seeing a representative personal service and is working on losing weight. pt will get his flu vaccine at his pharmacy. [facility] Medical History Gallstones Gallstone (impacted) Sleep apnea Low vitamin B12 level Anemia HTN (hypertension) Obesity Surgical History H/O hernia repair Hernia Cysts Family History Father No problems noted. Mother No problems noted. Brother No problems noted. 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 1. Little interest or pleasure in doing things: not at all 2. Feeling down, depressed, or hopeless: not at all 3. Trouble falling or staying asleep, or sleeping too much: not at all 4. Feeling tired or having little energy: not at all 5. Poor appetite or overeating: not at all 6. Feeling bad about yourself - or that you are a failure or have let yourself or your family down: not at all 7. Trouble concentrating on things, such as reading the newspaper or watching television: not at all 8. Moving or speaking so slowly that other people could have noticed. Or the opposite - being so fidgety or restless that you have been moving around a lot more than usual: not at all 9. Thoughts that you would be better off or of hurting yourself in some way: not at all Total score: 0 Depression Screening Interpretation: Negative Depression Screening Done: Yes 37607 - PHQ-9 Billing: Yes Source: Developed by Drs. Kuldeep Johnston, Sayda Mahoney, Campbell Guidry and colleagues, with an educational racheal from [employer]. Thrive Questionnaire Date Thrive assessed: 07/11/23 I am a: Patient What is your living situation today?: I have a steady place to live Within the past 12 months, did the food you bought not last and you didn't have the money to get more?: Never true Within the past 12 months, did you worry whether your food would run out before you got money to buy more?: Never true Do you have trouble paying for medicines?: No Do you have trouble getting transportation to medical appointments?: No Do you have trouble paying your heating and electricity bill?: No Do you have trouble taking care of your child, family member or friend?: No Do you have trouble with day-to-day activities such as bathing, preparing meals, shopping, managing finances, etc.?: No Are you currently unemployed and looking for a job?: No Are you interested in more education?: No JAIRO-7 AMB Questionnaire JAIRO-7 Date JAIRO - 7 assessed: 07/11/23 Feeling nervous, anxious, or on edge: 0 = Not at all Not being able to stop or control worryin = Not at all Worrying too much about different things: 0 = Not at all Trouble relaxin = Not at all Being so restless that it is hard to sit still: 1 = Several days Becoming easily annoyed or irritable: 0 = Not at all Feeling afraid as if something awful might happen: 0 = Not at all Total JAIRO-7 score (0-4 normal; 5-9 mild; 10-14 moderate; 15-21 severe): 1 Source: Developed by Drs. Kuldeep Johnston, Sayda Mahoney, Campbell Guidry and colleagues, with an educational racheal from [employer]. JAIRO-7 Assessment Billing JAIRO-7 Assessment Tool: JAIRO-7 Assessment 56465 Review of Systems Const Denies chills and Denies fever(s) Eyes Denies blurry vision ENT Denies vertigo, Denies dizziness and Denies sore throat Card Denies chest pain at rest, Denies chest pain with activity, Denies diaphoresis, Denies dyspnea and Denies dyspnea on exertion Resp Denies cough, Denies dyspnea, Denies dyspnea on exertion and Denies wheezing GI Denies abdominal pain, Denies melena, Denies hematochezia, Denies constipation, Denies diarrhea and Denies loose stools Denies hematuria Musc Denies numbness and Denies tingling Skin/Breast Denies lesions Neuro Denies vertigo, Denies dizziness, Denies numbness and Denies tingling Psych Denies anxiety, Denies depression, Denies homicidal ideation, Denies suicidal ideation and Denies other (substance abuse) Aller/Immun Denies wheezing Physical exam (Primary Care) Vital Signs: Last Vital Signs Pulse 76 07/11/23 07:36 BP 120/80 07/11/23 07:36 Pulse Ox 97 07/11/23 07:36 Oxygen Delivery Method Room Air 07/11/23 07:36 Tobacco/Smoking Status: Tobacco use Status Tobacco use date assessed 01/15/23 07/11/23 07:32 Patient Tobacco Use Status Never used Tobacco 07/11/23 07:32 e-Cigarette/Vaping Use Never Used 07/11/23 07:32 Depression Screening Interpretation: Negative Thrive Assessment: Date of Thrive Assessment Date Thrive assessed 10/10/21 07/11/23 07:32 Const General: cooperative Nutritional Appearance: obese morbidly obese Orientation/consciousness: patient oriented x3 HENMT Head: Yes normal to inspection, Yes normocephalic and Yes atraumatic Ears: TM's normal bilaterally Eyes General: appearance normal, both eyes and all related structures Alignment and Position: alignment normal and position normal Neck Neck: Yes normal visual inspection and Yes no lymphadenopathy Thyroid: Thyroid normal Resp Effort & Inspection: normal respiratory effort Auscultation: clear to auscultation bilaterally Cardio Rate: regular rate Rhythm: regular rhythm Heart sounds: S1 normal heart sound present, S2 normal heart sound present and no murmurs GI Palpation (GI): Soft to palpation and nontender Auscultation: normal bowel sounds Other: right scrotal mass palpated,round. Indurated, not tender with touch and movable. Male General Exam: Yes normal external exam Penis: normal penis Scrotum: testes descended bilaterally and no inguinal hernias Testes: no testicular mass Skin Rashes: no rashes Neuro General: patient oriented x3, moves all extremities, no focal motor deficits and deep tendon reflexes 2+ bilaterally Romberg Test: Negative Extrem Other: trace edema to BLE Psych Appearance: grossly normal Mental Status: mental status grossly normal Speech and movement: Normal speech and movement present Affect: normal affect Attitude: cooperative Thought process: Normal thought process present Thought content: Normal thought content present Insight: Good insight present (Psych) Judgement: Good judgement present (Psych) Assessment and Plan Assessment & Plan (1) Physical exam: Code(s): Z00.00 - Encounter for general adult medical examination without abnormal findings Plan: Labs ordered (2) Low vitamin B12 level: Code(s): E53.8 - Deficiency of other specified B group vitamins Plan: Labs ordered (3) Scrotal lesion: Code(s): N50.9 - Disorder of male genital organs, unspecified Plan The patient agreed to the use of a medical assistant ob gyn for this encounter. Scribed for JOHN Vargas by Lenka Vee medical assistant ob gyn, on 07/11/2023 at 07:40 EST Orders: Orders Complete Blood Count Auto Diff Today Z00.00 - Encounter for general adult medical examination without abnormal findings Comprehensive [place]. Panel Fast Today Z00.00 - Encounter for general adult medical examination without abnormal findings Lipid Panel Today Z00.00 - Encounter for general adult medical examination without abnormal findings Vitamin B12 and Folate Today E53.8 - Deficiency of other specified B group vitamins TSH reflex Free T4 Today Z00.00 - Encounter for general adult medical examination without abnormal findings UA CC w/rflx Micro + Cult Today Z00.00 - Encounter for general adult medical examination without abnormal findings US scrotum Today N50.9 - Disorder of male genital organs, unspecified Coding Level of Care Code Est Pt Prev Care 18-39y(93187) Diagnoses Physical exam Z00.00 Low vitamin B12 level E53.8 Scrotal lesion N50.9 Additional Codes JAIRO-7 Assessment Billing - JAIRO-7 Assessment Tool: JAIRO-7 Assessment 25090 ([id number])
[2023-07-11 07:36] VITALS: BP 120/80; PULSE 76; O2SAT 97
== END 2023-07-11 08:45 | disposition home or self-care (01) ==
PROVIDERS: Visit Provider Nurse Practitioner Family
DX: Z00.00 Encounter for general adult medical examination without abnormal findings (principal); E53.8 Deficiency of other specified B group vitamins; N50.9 Disorder of male genital organs, unspecified
CPT/HCPCS: 99395

== ENCOUNTER 2023-07-13 15:37 | Outpatient (REF) | payer OTHER, SELFPAY ==
--- NOTE | ~2023-07-13 | US_ITS ---
EXAMINATION: US SCROTUM CLINICAL INFORMATION: Right-sided lesion. COMPARISON: None available. TECHNIQUE: A sonogram of the scrotum was performed assessing ortiz-scale appearance and color Doppler flow. Spectral Doppler analysis of the arterial and venous flow were performed in the testes bilaterally. FINDINGS: RIGHT: Right testicle measures 4.3 x 2.0 x 3.2 cm, volume 14.4 mL. Tunica albuginea cyst measures 4 x 2 x 3 mm. Spectral Doppler analysis of the arterial and venous flow is normal in the right testis. Scrotal chelsie measures 2 x 1 x 2 mm. Right epididymal head is normal in size. No right hydrocele or varicocele is seen. Right epididymal Doppler flow is normal. LEFT: Left testicle measures 4.2 x 2.2 x 4.1 cm, volume 19.8 mL. No focal testicular parenchymal lesions are visualized. Spectral Doppler analysis of the arterial and venous flow is normal in the left testis. Left epididymal head is normal in size. No left hydrocele or varicocele is seen. Left epididymal Doppler flow is normal. US/US scrotum IMPRESSION: Right tunica albuginea cyst measures 4 x 2 x 3 mm. Right scrotal chelsie measures 2 x 1 x 2 mm.
== END 2023-07-13 15:38 | disposition home or self-care (01) ==
LOC: HO.HMGCX 15:37
PROVIDERS: PCP Nurse Practitioner Family; Visit Provider Nurse Practitioner Family
DX: N50.9 Disorder of male genital organs, unspecified (principal)
CPT/HCPCS: 76870

== ENCOUNTER 2023-08-03 09:59 | Outpatient (REF) | payer OTHER, SELFPAY ==
[2023-08-03 10:31] LABS: MANUAL DIFF FLAG NO
[2023-08-03 11:02] LABS: Basophils Percent Auto 0.4 % (0-2); Eosinophils Absolute Auto 0.1 X10*3/uL (0.0-0.4); Eosinophils Percent Auto 2.4 % (0-4); Hematocrit 41.3 % (42.0-52.0); Hemoglobin 14.2 g/dl (14.0-18.0); Imm Gran Abs Auto 0.01 X10*3/uL (0.00-0.03); Imm Gran Pct Auto 0.2 % (0.0-0.4); Lymphocytes Absolute Auto 1.7 X10*3/uL (1.2-4.9); Lymphocytes Percent Auto 30.9 % (20-40); Mean Corpuscular HGB Conc 34.4 g/dl (31.0-36.0); Mean Corpuscular Volume 78.7 fL (80.0-98.0); Monocytes Absolute Auto 0.7 X10*3/uL (0.1-1.2); Monocytes Percent Auto 13.4 % (2-11); Neutrophils Absolute Auto 2.9 x10*3/uL (2.0-8.3); Neutrophils Percent Auto 52.7 % (45-73); Platelet Count 195 X10*3/uL (160-400); Red Blood Count 5.25 X10*6/uL (4.60-5.80); Red Cell Distribution Width 12.6 % (11.0-16.0); White Blood Count 5.4 X10*3/uL (4.8-10.8)
[2023-08-03 11:11] LABS: Appearance Urine Cloudy; Color Urine Yellow; Glucose Urine UA Negative (Negative); Leukocyte Esterase Urine Negative (Negative); Nitrite Urine Negative (Negative); Urine Blood Negative (Negative); Urine Ketones Negative (Negative); Urine Protein Negative (Neg-Trace)
[2023-08-03 11:39] LABS: Alanine Aminotransferase 33 U/L (0-40); Albumin Level 3.9 g/dL (3.5-5.0); Alkaline Phosphatase 67 U/L (39-117); Anion Gap 9 (12-20); Aspartate Amino Transferase 23 U/L (5-37); Bilirubin Total 0.7 mg/dL (0.0-1.0); Blood Urea Nitrogen 10 mg/dL (9-16); Calcium 8.7 mg/dL (8.4-10.2); Carbon Dioxide 28 mmol/L (22-29); Chloride 106 mmol/L (96-108); Cholesterol 165 mg/dL (<200); Estimated Glomerular Filt Rate > 60; Glucose Fasting 96 mg/dL (60-99); HDL Cholesterol 31 mg/dL (>40); LDL Cholesterol Calculated 111 mg/dL (<100); Potassium 3.8 mmol/L (3.3-5.1); Sodium 139 mmol/L (135-145); Total Protein 6.7 g/dL (6.5-8.0); Triglycerides 118 mg/dL (<150)
[2023-08-03 12:03] LABS: Folate 13.5 ng/mL (> or = 4.0); Vitamin B12 309 pg/mL (200-900)
[2023-08-03 12:12] LABS: TSH reflex Free T4 0.89 uIU/mL (0.32-4.0)
== END 2023-08-03 10:00 | disposition home or self-care (01) ==
LOC: HO.LAB 09:59
PROVIDERS: PCP Nurse Practitioner Family; Visit Provider Nurse Practitioner Family
DX: Z00.00 Encounter for general adult medical examination without abnormal findings (principal); E53.8 Deficiency of other specified B group vitamins; I10 Essential (primary) hypertension; Z13.220 Encounter for screening for lipoid disorders
CPT/HCPCS: 36415; 80053; 80061; 81003; 82607; 82746; 84443; 85025

== ENCOUNTER → 2023-08-27 08:28 | Outpatient (BNVA) | payer OTHER, SELFPAY | PROVIDERS: PCP Nurse Practitioner Family; Visit Provider Urology ==

== ENCOUNTER 2023-10-04 10:21 | Outpatient (AMB) | payer OTHER, SELFPAY ==
--- NOTE | 2023-10-04 10:28 | A.OFFVIS_ITS ---
Intake Intake Visit Reasons: scrotal cysts/ pearls Intake Note: NEW Patient presents today to established treatment for Scrotal Cysts: Meds- Sildenafil Allergies to Antibiotic- No Known Allergies Blood Thinner- None Patient unable to void Drier Take Off Tender Required: No Accompanied by: Self / Same As Patient Allergies No Known Drug Allergies Allergy (Unknown, Verified 10/04/23 10:35) Unknown pollen Allergy (Severe, Uncoded 10/04/23 10:30) sneezing Medication List - Last Reconciled 10/04/23 by Chris Mckeon MD cetirizine (Zyrtec) 10 mg PO DAILY PRN lisinopril 40 mg PO DAILY 90 days multivitamin (Daily Multi-Vitamin tablet) 1 tab PO DAILY sildenafil 25 mg PO DAILY PRN 10 days HPI HPI Comments History of Present Illness Details 10/04/23 Louie is a 33 year old male here for evaluation due to findings on scrotal US. He denies urinary symptoms. He denies testicular pain. He states that US was ordered due to abnormal scrotal exam with his PCP. I have reviewed scrotal US results and findings are not clinically significant. Testicular exam - today is normal. US Scrotum: 07/13/23 Right tunica albuginea cyst measures 4 x 2 x 3 mm. Right scrotal chelsie measures 2 x 1 x 2 mm. Plan - FU prn [facility] Medical History Gallstones Gallstone (impacted) Sleep apnea Low vitamin B12 level Anemia HTN (hypertension) Obesity Surgical History H/O hernia repair Hernia Cysts Family History Father No problems noted. Mother No problems noted. Brother No problems noted. 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 Current occupational exposures/hazards: No Cognitive needs: No Hearing needs: No Vision needs: No Review of Systems Const All systems reviewed & are unremarkable except as noted in HPI and below Reports no additional complaints Eyes Reports no additional complaints ENT Reports no additional complaints Card Denies dyspnea Resp Denies cough and Denies dyspnea GI Reports no additional complaints Musc Reports no additional complaints Skin/Breast Denies rash and Denies unusual bruising Neuro Reports no additional complaints Psych Reports no additional complaints Endo Reports no additional complaints Gary/Lymph Reports no additional complaints Aller/Immun Reports no additional complaints Physical Exam Const General: healthy appearing, no acute distress and well developed Orientation/consciousness: patient oriented x3 HEENT Head: Yes normocephalic and Yes atraumatic Eyes Conjunctivae: conjunctivae normal Neck Neck: Yes normal visual inspection Chest Chest palpation & inspection: normal inspection of the chest Resp Effort & Inspection: normal respiratory effort Cardio Rate: regular rate GI Inspection: Yes normal to inspection Palpation (GI): Soft to palpation Penis: normal penis Scrotum: scrotum normal Skin General skin exam: no rashes or lesions noted Neuro General: patient oriented x3 Extrem General: No pedal edema Psych Appearance: grossly normal Affect: normal affect Results Reviewed Results Reviewed: Date of Service: 07/13/23 EXAMINATION: US SCROTUM CLINICAL INFORMATION: Right-sided lesion. COMPARISON: None available. TECHNIQUE: A sonogram of the scrotum was performed assessing ortiz-scale appearance and color Doppler flow. Spectral Doppler analysis of the arterial and venous flow were performed in the testes bilaterally. FINDINGS: RIGHT: Right testicle measures 4.3 x 2.0 x 3.2 cm, volume 14.4 mL. Tunica albuginea cyst measures 4 x 2 x 3 mm. Spectral Doppler analysis of the arterial and venous flow is normal in the right testis. Scrotal chelsie measures 2 x 1 x 2 mm. Right epididymal head is normal in size. No right hydrocele or varicocele is seen. Right epididymal Doppler flow is normal. LEFT: Left testicle measures 4.2 x 2.2 x 4.1 cm, volume 19.8 mL. No focal testicular parenchymal lesions are visualized. Spectral Doppler analysis of the arterial and venous flow is normal in the left testis. Left epididymal head is normal in size. No left hydrocele or varicocele is seen. Left epididymal Doppler flow is normal. IMPRESSION: Right tunica albuginea cyst measures 4 x 2 x 3 mm. Right scrotal chelsie measures 2 x 1 x 2 mm. Assessment & Plan Assessment & Plan (1) Scrotal cyst: Code(s): L72.9 - Follicular cyst of the skin and subcutaneous tissue, unspecified Plan Follow up PRN Patient Instructions: The patient had an opportunity to ask questions regarding treatment plan. All questions were answered. Imaging, Laboratory studies and physical exam results were discussed and reviewed in detail. No major barriers to understanding were identified. The patient expressed understanding and agreement with the above treatment plan. The patient is aware they should contact our office by phone for worsening of their current condition or the appearance of new symptoms. Compliance is encouraged with any medications and followup testing that is ordered. It is a privilege to be allowed the opportunity to participate in the urologic care of your patient. If you have any questions or concerns regarding treatment for the above conditions please do not hesitate to contact me. The office telephone contact is [phone]. This note is constructed in part using voice recognition software. While every effort has been made to ensure accuracy smt operator errors may have been included. Yours sincerely, Chris Mckeon MD Coding Level of Care Code New Pt Level 3 (34512) Diagnoses Scrotal cyst L72.9
== END 2023-10-04 11:08 | disposition home or self-care (01) ==
PROVIDERS: PCP Nurse Practitioner Family; Visit Provider Urology
DX: L72.9 Follicular cyst of the skin and subcutaneous tissue, unspecified (principal)
CPT/HCPCS: 99203

== ENCOUNTER → 2023-10-04 10:21 | Outpatient (BNVA) | payer OTHER, SELFPAY | PROVIDERS: PCP Nurse Practitioner Family; Visit Provider Urology ==

== ENCOUNTER 2023-10-20 09:06 | Outpatient (AMB) | payer OTHER, SELFPAY ==
--- OUTSIDE RECORDS SUMMARY | 2023-10-20 09:08 | XMS_ITS | Continuity of Care Document ---
Author Name Unknown Organization [facility] Address [address], [address] [place] [id number]- Care Team Providers Care Shank Burnisher Name Role Phone Shon Webb MD Primary Care Physician [place] [facility] [place] - 02/28/23 [facility] [address] [place] [address], [address] [place] [id number]- Attending Physician: Olivier Lentz Admitting Physician: AdmOlivier barajas Referring Physician: Admtr, Ar8 Patient Care team information Care Team Personnel Name: Shon Webb MD Position: [facility] Physician - Pediatrics Member Role: PCP Address: Address: [address] [place] [address] [place] [address]- Care Team Related Persons Name: ALEXEY WOOD Address: home [address] [place] [address]
[2023-10-20 09:09] VITALS: BP 122/80; PULSE 90; TEMP 36.7; O2SAT 98; BMI 51.2
--- NOTE | 2023-10-20 09:09 | MHC.OFFWIV ---
Intake Vital Signs 10/20/23 09:09 Height 5 ft 7 in Weight 327 lb 4 oz BMI 51.2 BP 122/80 Blood Pressure Location Lt brachial Position Sitting Pulse 90 Pulse Source Pulse Oximeter Temp 98.0 F Temp Source Oral Pulse Oximetry (%) 98 Oxygen Delivery Method Room Air Intake Visit Reasons: EP RT leg Pain knee/Calf Intake Note: Patient is here with knee and lower right leg pain to the touch, and while walking, for about 3 weeks or so. Patient Tobacco Use Status: Never used Tobacco Allergies No Known Drug Allergies Allergy (Unknown, Verified 10/20/23 09:16) Unknown pollen Allergy (Severe, Uncoded 10/20/23 09:16) sneezing Medication List - Last Reconciled 10/20/23 by Sissy Marie CNP cetirizine (Zyrtec) 10 mg PO DAILY PRN lisinopril 40 mg PO DAILY 90 days multivitamin (Daily Multi-Vitamin tablet) 1 tab PO DAILY sildenafil 25 mg PO DAILY PRN 10 days Do you need a note to return to daycare/school/sports/work: No HPI HPI Comments History of Present Illness Details 33-year-old male presents to walk-in clinic for complaint of right knee pain x3 weeks. He reports pain started in his right lower anterior leg, and has since radiated to right anterior knee x the last 3 days. He was seen at [facility] ER 2-3 weeks ago for similar complaint, He reports ultrasound was negative for a blood clot, but they did not do an Xray . He endorses right knee pain worse with ambulating, some swelling, and tender to touch. He denies recent trauma, injury. 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 He denies erythema to right knee, pain waking him up at night, fever, chills, CP, SOB, numbness or tingling to right foot. He also denies abdominal pain, or changes in bowels or bladder. [facility] Medical History Gallstones Gallstone (impacted) Sleep apnea Low vitamin B12 level Anemia HTN (hypertension) Obesity Surgical History H/O hernia repair Hernia Cysts Family History Father No problems noted. Mother No problems noted. Brother No problems noted. 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 Current occupational exposures/hazards: No Cognitive needs: No Hearing needs: No Vision needs: No Review of Systems Const All systems reviewed & are unremarkable except as noted in HPI and below Physical Exam Vital Signs: Last Vital Signs Temp 98.0 F 10/20/23 09:09 Pulse 90 10/20/23 09:09 BP 122/80 10/20/23 09:09 Pulse Ox 98 10/20/23 09:09 Oxygen Delivery Method Room Air 10/20/23 09:09 BMI result Body Mass Index 51.2 Const General: healthy appearing and no acute distress Nutritional Appearance: obese Orientation/consciousness: patient oriented x3 Limitations: no limitations Eyes General: appearance normal, both eyes and all related structures Resp Effort & Inspection: normal respiratory effort, no cough, no respiratory distress and not tachypneic Auscultation: clear to auscultation bilaterally Cardio Rate: regular rate Rhythm: regular rhythm Heart sounds: S1 normal heart sound present, S2 normal heart sound present and no murmurs Peripheral pulses: Peripheral pulses 2+ throughout GI Inspection: Yes obesity Palpation (GI): Soft to palpation and nontender Auscultation: normal bowel sounds Neuro General: patient oriented x3, gait normal, moves all extremities and no focal motor deficits Extrem Right lower extremity: normal to inspection and knee Details: normal to inspection, tenderness Location: of the popliteal fossa and knee ligament exam normal; no swelling, no ecchymosis, no deformity and no unusual warmth; no cyanosis, no edema and joint enlargement noted Psych Appearance: well kempt Affect: normal affect Attitude: cooperative Results Reviewed Results Reviewed: [facility] [place] [address] XRay Report Signed Patient: Louie Piper MR#: [id number] : 1990 Acct:[id number] Age/Sex: 33 / M ADM Date: 10/20/23 Loc: HO.HMGCX Attending Dr: Sissy Marie CNP Ordering Physician: Sissy Marie CNP Date of Service: 10/20/23 Procedure(s): XR knee RT 2V Accession Number(s): [id number] cc: Sissy Marie CNP~ EXAMINATION: XR KNEE, RIGHT CLINICAL INFORMATION: Pain, no trauma. COMPARISON: None available. TECHNIQUE: Two views of the right knee. FINDINGS: No fracture or subluxation. Joint spaces are maintained. No unusual soft tissue calcifications. Small joint effusion. XR/XR knee RT 2V IMPRESSION: 1. No acute fractures or malalignment. 2. Small joint effusion. Assessment & Plan Assessment & Plan (1) Acute pain of right knee: Code(s): M25.561 - Pain in right knee Plan: 33-year-old male seen today in office for complaint of right knee pain x3 weeks with no associated trauma,injury, and neg blood clot by ultrasound at [facility] 2-3 weeks prior to todays visit. 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 Upon physical exam, right knee tender to palpitation, and pain with active and passive ROM, no swelling or erythema, not overly warm to touch, no crepitus or deformity appreciated. Will order Xray of right knee. (2) Muscle strain of right knee: Code(s): S86.911A - Strain of unspecified muscle(s) and tendon(s) at lower leg level, right leg, initial encounter Qualifiers: Encounter type: initial encounter Qualified Code(s): S86.911A - Strain of unspecified muscle(s) and tendon(s) at lower leg level, right leg, initial encounter Plan: Patient has Ibuprofen 600 mg at home, no RX needed. 1. Tylenol 1000 mg, orally, every 6 hours as needed for right knee pain. 2. Lidocaine patch, available [id number] and should be apply to area of maximal tenderness as directed on the outside packaging. 3. Ibuprofen 600 mg, orally with milk or food, every 6 hours as needed for right knee pain. 4. Ice to right pain twice a day, may alternate w/ heat therapy. 5. If right knee pain persists and unrelieved with above measures, encouraged to follow up with his PCP. Call office, or go to ER for acute worsening of symptoms. (3) Knee effusion, right: Code(s): M25.461 - Effusion, right knee Plan: Reviewed Xray results with patient, small joint effusion noted on xray. Non infected, encouraged to rest knee x 1 week, avoid leg exercises x 1 week and effusion should resolve. Continue with above pain management treatment, and if right knee becomes more swollen, he develops a fever or more severe knee pain return to office or follow up with PCP Orders: Orders XR knee RT 2V Today M25.561 - Pain in right knee Medications: New lidocaine 5% leave on most painful area for up to 12 hrs 1 patch topical DAILY 15 ea 0RF M25.561 - Pain in right knee Coding Level of Care Code Est Pt Level 4 (77691) Diagnoses Acute pain of right knee M25.561 Muscle strain of right knee, initial encounter S86.911A Encounter type: initial encounter Knee effusion, right M25.461
== END 2023-10-20 09:55 | disposition home or self-care (01) ==
PROVIDERS: PCP Nurse Practitioner Family; Visit Provider Nurse Practitioner Acute Care
DX: M25.561 Pain in right knee (principal); S86.911A Strain of unspecified muscle(s) and tendon(s) at lower leg level, right leg, initial encounter; M25.461 Effusion, right knee
CPT/HCPCS: 99051; 99214

== ENCOUNTER 2023-10-20 09:24 | Outpatient (REF) | payer OTHER, SELFPAY ==
--- NOTE | ~2023-10-20 | XR_ITS ---
EXAMINATION: XR KNEE, RIGHT CLINICAL INFORMATION: Pain, no trauma. COMPARISON: None available. TECHNIQUE: Two views of the right knee. FINDINGS: No fracture or subluxation. Joint spaces are maintained. No unusual soft tissue calcifications. Small joint effusion. XR/XR knee RT 2V IMPRESSION: 1. No acute fractures or malalignment. 2. Small joint effusion.
== END 2023-10-20 09:25 | disposition home or self-care (01) ==
LOC: HO.HMGCX 09:24
PROVIDERS: Visit Provider Nurse Practitioner Acute Care
DX: M25.561 Pain in right knee (principal)
CPT/HCPCS: 73560

== ENCOUNTER 2023-11-29 08:56 | Outpatient (AMB) | payer OTHER, SELFPAY ==
--- NOTE | 2023-11-29 09:14 | A.OFFVIS_ITS ---
Intake Vital Signs 11/29/23 09:18 Height 5 ft 7 in Weight 322 lb 4 oz BMI 50.5 BP 124/82 Blood Pressure Location Lt brachial Position Sitting Pulse 80 Pulse Source Pulse Oximeter Pulse Oximetry (%) 98 Oxygen Delivery Method Room Air Intake Visit Reasons: 6m follow up PAOLA- Unable to lvm Intake Note: Patients presents for 6 months f/u of PAOLA. Allergies No Known Drug Allergies Allergy (Unknown, Verified 11/29/23 09:17) Unknown pollen Allergy (Severe, Uncoded 10/20/23 09:16) sneezing HPI HPI Comments History of Present Illness Details 33 y/o male patient presents for follow up of PAOLA on CPAP. Pt underwent split night sleep study. The baseline portion of the study was significant for a severe degree of sleep apnea. The AHI was 34/hr and oxygen gautam was 89%. Pt trialed on CPAP [id number]. The breathing and oxygenation stabilized on CPAP at [id number]. The CPAP compliance and therapy response (08/24/23-11/21/23) reviewed. The usage days 98 % and the average usage hours 5 hrs. The residual AHI was 1.5/hr. Pt reports he could not use the CPAP couple of days due to sinus infection. He sleeps better with CPAP, feels rested in the morning and more energized during daytime. [facility] Medical History Gallstones Gallstone (impacted) Sleep apnea Low vitamin B12 level Anemia HTN (hypertension) Obesity Surgical History H/O hernia repair Hernia Cysts Family History Father No problems noted. Mother No problems noted. Brother No problems noted. 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 Current occupational exposures/hazards: No Cognitive needs: No Hearing needs: No Vision needs: No Review of Systems Const All systems reviewed & are unremarkable except as noted in HPI and below ENT Reports Normal hearing present Neuro Reports Normal hearing present Physical Exam Vital Signs: Last Vital Signs Pulse 80 11/29/23 09:18 BP 124/82 11/29/23 09:18 Pulse Ox 98 11/29/23 09:18 Oxygen Delivery Method Room Air 11/29/23 09:18 BMI result Body Mass Index 50.5 Const General: cooperative Nutritional Appearance: obese Orientation/consciousness: patient oriented x3 Resp Effort & Inspection: normal respiratory effort and able to speak in complete sentences Neuro General: patient oriented x3 and gait normal Cranial nerves: Yes Bilaterally intact EOM present, Yes Normal facial strength present, Yes Midline tongue present, Yes Symmetric palate elevation present, Yes Normal hearing present, Yes Ability to bilaterally rotate head present and Yes Ability to bilaterally elevate shoulders present Cognition (Neuro): normal cognition Assessment & Plan Assessment & Plan (1) Sleep apnea: Comment: Severe degree of sleep apena. The AHI was 34/hr and oxygen gautam was 89%. Code(s): G47.30 - Sleep apnea, unspecified Plan Continue to use CPAP at [id number] as patient experiences good clinical effects. New CPAP mask fitting session advised and prescription given to patient. Wt reduction advised. Coding Level of Care Code Est Pt Level 3 (05541) Diagnoses Sleep apnea G47.30
[2023-11-29 09:18] VITALS: BP 124/82; PULSE 80; O2SAT 98; BMI 50.5
== END 2023-11-29 09:27 | disposition home or self-care (01) ==
PROVIDERS: PCP Nurse Practitioner Family; Visit Provider Nurse Practitioner Family
DX: G47.30 Sleep apnea, unspecified (principal)
CPT/HCPCS: 99213

== ENCOUNTER → 2023-11-29 08:56 | Outpatient (BNVA) | payer OTHER, SELFPAY | PROVIDERS: PCP Nurse Practitioner Family; Visit Provider Nurse Practitioner Family | DX: E66.01 Morbid (severe) obesity due to excess calories (principal); G47.30 Sleep apnea, unspecified; R40.0 Somnolence; I10 Essential (primary) hypertension ==

== ENCOUNTER 2024-02-23 08:55 | Outpatient (REF) | payer OTHER, SELFPAY ==
[2024-02-23 09:21] LABS: MANUAL DIFF FLAG NO
[2024-02-23 09:55] LABS: Basophils Percent Auto 0.5 % (0-2); Eosinophils Absolute Auto 0.1 X10*3/uL (0.0-0.4); Eosinophils Percent Auto 2.4 % (0-4); Hematocrit 39.8 % (42.0-52.0); Hemoglobin 13.8 g/dl (14.0-18.0); Imm Gran Abs Auto 0.02 X10*3/uL (0.00-0.03); Imm Gran Pct Auto 0.3 % (0.0-0.4); Mean Corpuscular HGB Conc 34.7 g/dl (31.0-36.0); Mean Corpuscular Hemoglobin 27.1 pg (27.0-33.0); Mean Corpuscular Volume 78.2 fL (80.0-98.0); Monocytes Absolute Auto 0.7 X10*3/uL (0.1-1.2); Monocytes Percent Auto 12.8 % (2-11); Neutrophils Absolute Auto 2.9 x10*3/uL (2.0-8.3); Platelet Count 199 X10*3/uL (160-400); Red Blood Count 5.09 X10*6/uL (4.60-5.80); Red Cell Distribution Width 13.1 % (11.0-16.0); White Blood Count 5.8 X10*3/uL (4.8-10.8)
[2024-02-23 09:58] LABS: Appearance Urine Clear; Color Urine Yellow; Glucose Urine UA Negative (Negative); Leukocyte Esterase Urine Negative (Negative); Nitrite Urine Negative (Negative); Specific Gravity - Urine 1.015 (1.005-1.025); Urine Blood Negative (Negative); Urine Ketones Negative (Negative); Urine Protein Negative (Neg-Trace)
[2024-02-23 10:34] LABS: Alanine Aminotransferase 45 U/L (0-40); Alkaline Phosphatase 67 U/L (39-117); Anion Gap 10 (12-20); Aspartate Amino Transferase 26 U/L (5-37); Bilirubin Total 0.5 mg/dL (0.0-1.0); Blood Urea Nitrogen 12 mg/dL (9-16); Calcium 9.1 mg/dL (8.4-10.2); Carbon Dioxide 26 mmol/L (22-29); Chloride 107 mmol/L (96-108); Cholesterol 180 mg/dL (<200); Estimated Glomerular Filt Rate > 60; Glucose Fasting 107 mg/dL (60-99); HDL Cholesterol 35 mg/dL (>40); LDL Cholesterol Calculated 117 mg/dL (<100); Potassium 4.1 mmol/L (3.3-5.1); Sodium 139 mmol/L (135-145); Total Protein 7.1 g/dL (6.5-8.0); Triglycerides 140 mg/dL (<150)
[2024-02-23 10:55] LABS: TSH reflex Free T4 1.06 uIU/mL (0.32-4.0)
[2024-02-23 11:00] LABS: Folate 13.7 ng/mL (> or = 4.0); Vitamin B12 257 pg/mL (200-900)
== END 2024-02-23 08:56 | disposition home or self-care (01) ==
LOC: HO.LAB 08:55
PROVIDERS: PCP Nurse Practitioner Family; Visit Provider Nurse Practitioner Family
DX: I10 Essential (primary) hypertension (principal); E53.8 Deficiency of other specified B group vitamins
CPT/HCPCS: 36415; 80053; 80061; 81003; 82607; 82746; 84443; 85025

== ENCOUNTER 2024-02-25 12:29 | Outpatient (AMB) | payer OTHER, SELFPAY ==
--- NOTE | 2024-02-25 12:39 | MHC.PC.OV ---
Vital Signs 02/25/24 12:41 Height 5 ft 7 in Weight 327 lb BMI 51.2 BP 120/84 Blood Pressure Location Rt brachial Position Sitting Pulse 77 Pulse Source Pulse Oximeter Pulse Oximetry (%) 98 Oxygen Delivery Method Room Air Intake Visit Reasons: Follow up on labs and back Intake Note: Patient here to discuss back pain and review labs. Allergies No Known Drug Allergies Allergy (Unknown, Verified 02/25/24 13:19) Unknown pollen Allergy (Severe, Uncoded 02/25/24 13:19) sneezing Medication List - Last Reconciled 02/25/24 by Felipe Wilson, WET END TESTER- cephalexin 500 mg PO BID 10 days cetirizine (Zyrtec) 10 mg PO DAILY PRN doxycycline hyclate 100 mg PO BID 10 days lidocaine 5% 1 patch topical DAILY lisinopril 40 mg PO DAILY 90 days multivitamin (Daily Multi-Vitamin tablet) 1 tab PO DAILY sildenafil 25 mg PO DAILY PRN 10 days Tobacco use date assessed: 02/25/24 Dental Screening Dental Screen Date: 02/25/24 Did you have a dental visit in the last 12 months?: Yes Did you have a dental problem in the last 6 months where you did not have access to dental care?: No Was dental information given to patient?: Patient has dentist HPI Follow up on labs and back HPI Details Pt c/o lower transverse back pain. He reports that the pain is worsened with activity (yard work). Pt denies any radicular symptoms down his buttocks or lower extremities. Will order XR. Encouraged stretching routine at home. Denies any signs of cauda equina. Pt reports swelling of his right calf. He reports being seen in urgent care in September/October and having an US that was negative for DVT, missing documentation. Will repeat US to r/o DVT. Pt has an open abrasion/excoriation to his right gandhi. There is some tenderness and surrounding erythema. Will send doxycycline and cephalexin. denies any fevers chills, drainage, spreading erythema. anemia: will recheck labs and add b12 and iron levels. [facility] Medical History Gallstones Gallstone (impacted) Sleep apnea Low vitamin B12 level Anemia HTN (hypertension) Obesity Surgical History H/O hernia repair Hernia Cysts Family History Father No problems noted. Mother No problems noted. Brother No problems noted. Sister Healthy female Social History Housing: House Alcohol intake: current Alcohol intake frequency: holidays/special occasions only Patient Tobacco Use Status: Never used Tobacco e-Cigarette/Vaping Use: Never Used Second Hand Smoke Exposure: No Current occupational status: employed Current [place] [employer] Current occupational exposures/hazards: No Cognitive needs: No Hearing needs: No Vision needs: No Questionnaire PHQ-9 Over the last 2 weeks, how often have you been bothered by any of the following problems? 04228 - PHQ-9 Billing: Patient declined-do not bill Source: Developed by Drs. Kuldeep Johnston, Sayda Mahoney, Campbell Guidry and colleagues, with an educational racheal from [employer]. Thrive Questionnaire Date Thrive assessed: 02/25/24 I am a: Patient What is your living situation today?: I choose not to answer this question Within the past 12 months, did the food you bought not last and you didn't have the money to get more?: I choose not to answer this question Within the past 12 months, did you worry whether your food would run out before you got money to buy more?: I choose not to answer this question Do you have trouble paying for medicines?: I choose not to answer this question Do you have trouble getting transportation to medical appointments?: I choose not to answer this question Do you have trouble paying your heating and electricity bill?: I choose not to answer this question Do you have trouble taking care of your child, family member or friend?: I choose not to answer this question Do you have trouble with day-to-day activities such as bathing, preparing meals, shopping, managing finances, etc.?: I choose not to answer this question Are you currently unemployed and looking for a job?: I choose not to answer this question Are you interested in more education?: I choose not to answer this question Currently or been in a relationship where the following occur: I choose not to answer this question THRIVE Score: 0 AUDIT C Alcohol Use Questionnaire (AUDIT-C) 1. How often do you have a drink containing alcohol?: Monthly or less 2. How many drinks containing alcohol do you have on a typical day when you are drinking?: 1 or 2 3. How often do you have six or more drinks on one occasion?: Never Total Score: 1 Score Reviewed/Action Taken: No JAIRO-7 AMB Questionnaire JAIRO-7 Date JAIRO - 7 assessed: 02/25/24 Source: Developed by Drs. Kuldeep Johnston, Sayda Mahoney, Campbell Guidry and colleagues, with an educational racheal from [employer]. JAIRO-7 Assessment Billing JAIRO-7 Assessment Tool: pt declined-do not bill Review of Systems Const Reports as per HPI Physical exam (Primary Care) Vital Signs: Last Vital Signs Pulse 77 02/25/24 12:41 BP 120/84 02/25/24 12:41 Pulse Ox 98 02/25/24 12:41 Oxygen Delivery Method Room Air 02/25/24 12:41 BMI result Body Mass Index 51.2 Tobacco/Smoking Status: Tobacco use Status Tobacco use date assessed 02/25/24 02/25/24 12:45 Patient Tobacco Use Status Never used Tobacco 02/25/24 12:41 e-Cigarette/Vaping Use Never Used 02/25/24 12:41 Thrive Assessment: Date of Thrive Assessment Date Thrive assessed 02/25/24 02/25/24 12:45 Currently or been in a relationship where the following occur: I choose not to answer this question Const General: cooperative Nutritional Appearance: obese morbidly obese Orientation/consciousness: patient oriented x3 Resp Effort & Inspection: normal respiratory effort Auscultation: clear to auscultation bilaterally Cardio Rate: regular rate Rhythm: regular rhythm Heart sounds: S1 normal heart sound present and S2 normal heart sound present Back/Spine/Pelvis Other: able to tandem walk, able to heel and toe walk, with pt in supine position no pain with BLE raises and bilat knee to chest raises Neuro General: patient oriented x3 Extrem Other: open abrasion/excoriation to right lower gandhi, faint tenderness with palpation of surrounding area, slightly erythematous, + dorsalis pedis pulse Right lower extremity: edema Details: pitting and 1+ Assessment and Plan Assessment & Plan (1) Anemia: Code(s): D64.9 - Anemia, unspecified Plan: Labs ordered (2) Pain in lower back: Code(s): M54.50 - Low back pain, unspecified Plan: XR ordered, recommended stretching routine (3) Swelling of right extremity: Code(s): M79.89 - Other specified soft tissue disorders Plan: US ordered to r/o DVT Plan The patient agreed to the use of a medical imaging technician for this encounter. Scribed for FADIA Vargas-PRANAV by Lenka Vee medical imaging technician, on 02/25/2024 at 12:50 EST. Orders: Orders Ferritin Today D64.9 - Anemia, unspecified IRON PROFILE Today D64.9 - Anemia, unspecified Vitamin B12 and Folate Today D64.9 - Anemia, unspecified US venous duplex LE RT Today M79.89 - Other specified soft tissue disorders Complete Blood Count Auto Diff Today D64.9 - Anemia, unspecified Hemoglobin Electrophoresis Today D64.9 - Anemia, unspecified XR lumbar spine 2-3V Today M54.50 - Low back pain, unspecified Medications: New doxycycline hyclate 100 mg PO BID 10 days 20 tabs 0RF cephalexin 500 mg PO BID 10 days 20 caps 0RF Coding Level of Care Code Est Pt Level 4 (66871) Diagnoses Anemia D64.9 Pain in lower back M54.50 Swelling of right extremity M79.89
[2024-02-25 12:41] VITALS: BP 120/84; PULSE 77; O2SAT 98; BMI 51.2
== END 2024-02-25 13:37 | disposition home or self-care (01) ==
PROVIDERS: PCP Nurse Practitioner Family; Visit Provider Nurse Practitioner Family
DX: D64.9 Anemia, unspecified (principal); M54.50 Low back pain, unspecified; M79.89 Other specified soft tissue disorders
CPT/HCPCS: 99214

== ENCOUNTER 2024-02-26 08:03 | Outpatient (REF) | payer OTHER, SELFPAY ==
--- NOTE | ~2024-02-26 | XR_ITS ---
EXAMINATION: XR LUMBOSACRAL SPINE CLINICAL INFORMATION: Low back pain, unspecified. COMPARISON: December 01, 2007. TECHNIQUE: Three views of the lumbosacral spine. FINDINGS: Slight dextroscoliosis of the lumbar spine. Facet arthritis in the lower lumbar spine. Mild spondylosis in the lumbar spine with mild loss of disc space at L4-L5 and L5-S1. Linear lucency suggestive of spondylolysis at L5-S1 and possibly L4-L5. XR/XR lumbar spine 2-3V IMPRESSION: Mild spondylosis in the lumbar spine with mild loss of disc space at L4-L5 and L5-S1.
--- NOTE | ~2024-02-26 | US_ITS ---
EXAMINATION: US VENOUS ULTRASOUND WITH DOPPLER LOWER EXTREMITY, RIGHT CLINICAL INFORMATION: Swelling COMPARISON: None available. TECHNIQUE: Ultrasound of the deep veins is performed from the hip to the calf with compression sonography and color and pulse Doppler assessment. Spectral analysis with color-flow imaging is performed. Slight limitation secondary to patient body habitus and swelling FINDINGS: There is normal venous compression and respiratory variation and augmented flow. The visualized common femoral vein, superficial femoral vein, profunda femoral vein, popliteal vein, and the trifurcation region shows no evidence of deep venous thrombosis. There is no significant popliteal fossa cyst. Contralateral common femoral vein is patent. If the patient's symptoms persist, followup ultrasound in 5 days 7 days might be of value to exclude proximal propagation from a non-visualized calf vein. US/US venous duplex LE RT IMPRESSION: No DVT demonstrated in the right lower extremity.
== END 2024-02-26 08:04 | disposition home or self-care (01) ==
LOC: HO.HMGCX 08:03
PROVIDERS: PCP Nurse Practitioner Family; Visit Provider Nurse Practitioner Family
DX: M79.89 Other specified soft tissue disorders (principal); M54.50 Low back pain, unspecified; R60.0 Localized edema
CPT/HCPCS: 72100; 93971

== ENCOUNTER 2024-07-12 09:16 | Outpatient (AMB) | payer OTHER, SELFPAY ==
[2024-07-12 10:18] VITALS: BP 128/92; PULSE 79; TEMP 36.6; O2SAT 98; BMI 53.1
--- NOTE | 2024-07-12 10:18 | MHC.OFFWIV ---
Intake Vital Signs 07/12/24 10:18 Height 5 ft 7 in Weight 339 lb BMI 53.1 BP 128/92 H Blood Pressure Location Lt brachial Position Sitting Pulse 79 Pulse Source Pulse Oximeter Temp 97.8 F Temp Source Oral Pulse Oximetry (%) 98 Oxygen Delivery Method Room Air Intake Visit Reasons: EP-Cough Intake Note: Pt is here today c/o cough [id number] Patient Tobacco Use Status: Never used Tobacco Allergies No Known Drug Allergies Allergy (Unknown, Verified 07/12/24 10:19) Unknown pollen Allergy (Severe, Uncoded 07/12/24 10:19) sneezing HPI HPI Comments History of Present Illness Details Went to 1-2 few weeks ago; diagnosed with bronchitis and given medicine No relief and has had cough lingering x 3 weeks He previously took antibiotic, inhaler, cough drops OTC They gave a prescription cough medicine without relief (without codeine) Negative covid x 2 + frontal sinus headache due to cough No ear pain ot ST Cough still present; dry No fever or chills PFSH Medical History Gallstones Gallstone (impacted) Sleep apnea Low vitamin B12 level Anemia HTN (hypertension) Obesity Surgical History H/O hernia repair Hernia Cysts Family History Father No problems noted. Mother No problems noted. Brother No problems noted. 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 [employer] Current occupational exposures/hazards: No Cognitive needs: No Hearing needs: No Vision needs: No Review of Systems Const Denies chills, Denies fatigue, Denies fever(s) and Reports headache(s) ENT Denies dizziness, Denies ear discharge, Reports headache(s), Reports nasal congestion, Reports sinus pain, Reports sore throat and Denies throat swelling Card Denies chest pain Resp Denies change in phlegm color, Reports cough and Denies hemoptysis GI Denies abdominal pain Musc Denies myalgias Skin/Breast Denies rash Neuro Denies dizziness and Reports headache(s) Endo Denies fatigue Aller/Immun Denies throat swelling Physical Exam Vital Signs: Last Vital Signs Temp 97.8 F 07/12/24 10:18 Pulse 79 07/12/24 10:18 BP 128/92 H 07/12/24 10:18 Pulse Ox 98 07/12/24 10:18 Oxygen Delivery Method Room Air 07/12/24 10:18 BMI result Body Mass Index 53.1 General: Non-toxic, NAD. Speaking full sentences. Skin: Warm dry throughout Eye: EOMI HENT: Airway patent. Uvula midline. No pharyngeal erythema or edema. No SIMULATION SOFTWARE ENGINEER. Bilateral canals clear. TM slight-erythematous, without -bulging. No TM perforation or hemotympanum noted. Respiratory: CTA bilaterally. No wheezes, rales or rhonchi Cardiac: RRR. No murmur MSK: Full ROM extremities. Neurology: A/O. No aphasia or facial droop. Gait without abnormality Psych: Good mood and affect Assessment & Plan Assessment & Plan (1) Upper respiratory infection: Code(s): J06.9 - Acute upper respiratory infection, unspecified Qualifiers: URI type: unspecified viral URI Qualified Code(s): J06.9 - Acute upper respiratory infection, unspecified Plan: Patient seen and evaluated. Tessalon for cough Increase fluids/rest FU with PCP Patient gave verbal understanding and had no additional questions or concerns at time of discharge All questions answered Medications: New benzonatate 200 mg PO BID-TID PRN 14 caps 0RF cough Coding Level of Care Code Est Pt Level 3 (29465) Diagnoses Viral upper respiratory tract infection J06.9 URI type: unspecified viral URI
== END 2024-07-12 10:57 | disposition home or self-care (01) ==
PROVIDERS: PCP Nurse Practitioner Family; Visit Provider Physician Assistant
DX: J06.9 Acute upper respiratory infection, unspecified (principal)

== ENCOUNTER → 2024-07-12 09:16 | Outpatient (BNVA) | payer OTHER, SELFPAY | PROVIDERS: PCP Nurse Practitioner Family ==

== ENCOUNTER 2024-07-25 08:01 | Outpatient (AMB) | payer OTHER, SELFPAY ==
[2024-07-25 08:02] VITALS: BP 122/82; PULSE 92; O2SAT 96; BMI 52.1
--- NOTE | 2024-07-25 08:02 | A.OFFPC_ITS ---
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 Accompanied by: Self / Same As Patient Allergies No Known Drug Allergies Allergy (Unknown, Verified 07/25/24 08:03) Unknown pollen Allergy (Severe, Uncoded 07/12/24 10:19) sneezing Medication List - Last Reconciled 07/25/24 by Marycruz Sheikh NP cetirizine (Zyrtec) 10 mg PO DAILY PRN lisinopril 40 mg PO DAILY 90 days multivitamin (Daily Multi-Vitamin tablet) 1 tab PO DAILY sildenafil 25 mg PO DAILY PRN 10 days triamcinolone acetonide 0.5% 1 appl topical BID 14 days Tobacco use date assessed: 02/25/24 Dental Screening Dental Screen Date: 02/25/24 HPI HPI Comments 2 History of Present Illness0 Details 34 y/o male patient who presents to the clinic for PE. He is a patient of Felipe Wilson. Pmhx significant for Morbid obesity, HTN, Anemia, ED, and seasonal allergies. Currently Takes Viagra, Lisinopril, and Cetirizine. All medications reviewed and labs reviewed. Concerns: C/o right lower leg and ankle pain. States swelling on b/l limbs. 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 He believes the exercises might be the reason for his pain. He wears compression stockings that help with swelling. C/o right lower leg rash that is itchy and red. H/o Eczema. [facility] Medical History Gallstones Gallstone (impacted) Sleep apnea Low vitamin B12 level Anemia HTN (hypertension) Obesity Surgical History H/O hernia repair Hernia Cysts Family History Father No problems noted. Mother No problems noted. Brother No problems noted. 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 1. Little interest or pleasure in doing things: not at all 2. Feeling down, depressed, or hopeless: not at all 3. Trouble falling or staying asleep, or sleeping too much: not at all 4. Feeling tired or having little energy: not at all 5. Poor appetite or overeating: not at all 6. Feeling bad about yourself - or that you are a failure or have let yourself or your family down: not at all 7. Trouble concentrating on things, such as reading the newspaper or watching television: not at all 8. Moving or speaking so slowly that other people could have noticed. Or the opposite - being so fidgety or restless that you have been moving around a lot more than usual: not at all 9. Thoughts that you would be better off or of hurting yourself in some way: not at all Total score: 0 Depression Screening Interpretation: Negative Depression Screening Done: Yes 88690 - PHQ-9 Billing: Yes Source: Developed by Drs. Kuldeep Johnston, Sayda Mahoney, Campbell Guidry and colleagues, with an educational racheal from [employer]. Thrive Questionnaire Date Thrive assessed: 07/25/24 I am a: Patient What is your living situation today?: I have a steady place to live Within the past 12 months, did the food you bought not last and you didn't have the money to get more?: Never true Within the past 12 months, did you worry whether your food would run out before you got money to buy more?: Never true Do you have trouble paying for medicines?: No Do you have trouble getting transportation to medical appointments?: No Do you have trouble paying your heating and electricity bill?: No Do you have trouble taking care of your child, family member or friend?: No Do you have trouble with day-to-day activities such as bathing, preparing meals, shopping, managing finances, etc.?: No Are you currently unemployed and looking for a job?: No Are you interested in more education?: No Please select the resources that you would like help with: None Currently or been in a relationship where the following occur: No concerns reported THRIVE Score: 0 AUDIT C Alcohol Use Questionnaire (AUDIT-C) 1. How often do you have a drink containing alcohol?: 2-4 times a month 2. How many drinks containing alcohol do you have on a typical day when you are drinking?: 1 or 2 3. How often do you have six or more drinks on one occasion?: Never Total Score: 2 Score Reviewed/Action Taken: Yes JAIRO-7 AMB Questionnaire JAIRO-7 Date JAIRO - 7 assessed: 07/25/24 Feeling nervous, anxious, or on edge: 0 = Not at all Not being able to stop or control worryin = Not at all Worrying too much about different things: 0 = Not at all Trouble relaxin = Not at all Being so restless that it is hard to sit still: 0 = Not at all Becoming easily annoyed or irritable: 1 = Several days Feeling afraid as if something awful might happen: 0 = Not at all Total JAIRO-7 score (0-4 normal; 5-9 mild; 10-14 moderate; 15-21 severe): 1 Source: Developed by Drs. Kuldeep Johnston, Sayda Mahoney, Campbell Guidry and colleagues, with an educational racheal from [employer]. JAIRO-7 Assessment Billing JAIRO-7 Assessment Tool: JAIRO-7 Assessment 96163 Review of Systems Const All systems reviewed & are unremarkable except as noted in HPI and below Physical exam (Primary Care) Vital Signs: Last Vital Signs Pulse 92 07/25/24 08:02 BP 122/82 07/25/24 08:02 Pulse Ox 96 07/25/24 08:02 Oxygen Delivery Method Room Air 07/25/24 08:02 BMI result Body Mass Index 52.1 Tobacco/Smoking Status: Tobacco use Status Tobacco use date assessed 02/25/24 07/25/24 08:04 Patient Tobacco Use Status Never used Tobacco 07/25/24 08:04 e-Cigarette/Vaping Use Never Used 07/25/24 08:04 PHQ-9: PHQ-9 Score PHQ-9: Total score 0 07/25/24 09:20 Depression Screening Interpretation: Negative Thrive Assessment: Date of Thrive Assessment Date Thrive assessed 07/25/24 07/25/24 08:04 Currently or been in a relationship where the following occur: No concerns reported Const General: cooperative, comfortable and no acute distress Nutritional Appearance: obese Orientation/consciousness: patient oriented x3 HENMT Head: Yes normocephalic Ears: external ears normal and TM's normal bilaterally General nose exam: Normal nasal mucous membranes and turbinates present Face and sinus: Yes sinuses nontender Mouth: moist mucous membranes Throat: Yes posterior oropharynx normal, Yes tonsils normal and Yes uvula midline Eyes Pupils: Equal, round and reactive pupils present EOM: EOMs intact bilaterally Neck Neck: Yes full ROM and Yes no lymphadenopathy Resp Effort & Inspection: normal respiratory effort and able to speak in complete sentences Auscultation: clear to auscultation bilaterally, no crackles, no rales, no rhonchi and no wheezes Cardio Heart sounds: S1 normal heart sound present and S2 normal heart sound present GI Inspection: Yes normal to inspection, Yes Abdominal panniculus present and Yes obesity Palpation (GI): Soft to palpation, not firm, nontender, no guarding, not rigid and No hepatosplenomegaly present Auscultation: normal bowel sounds Rectal Exam - Male: Yes deferred General: Yes no CVA tenderness Back/Spine/Pelvis Back: no CVA tenderness Skin Other: Rash right lower leg rash. Neuro General: patient oriented x3, gait normal and moves all extremities Cranial nerves: Yes Equal, round and reactive pupils present Motor exam (neuro): 5/5 motor strength present throughout Extrem General: Yes full ROM Right lower extremity: lower leg Details: erythema, tenderness and pitting edema Details: 2+; no ecchymosis and no crepitus Left lower extremity: lower leg Details: pitting edema Details: 2+ Upper/lower leg/hip images: 2 1. Erythematous rash, crusting scaly. Psych Speech and movement: Normal speech and movement present Coding Level of Care Code Est Pt Prev Care 18-39y([id number]) Diagnoses Class 3 severe obesity due to excess calories without serious comorbidity with body mass index (BMI) of 50.0 to 59.9 in adult E66.813; E66.01; Z68.43 Body mass index: BMI 50.0-59.9 Obesity classification: adult class 3 (BMI >= 40) Obesity type: due to excess calories Serious obesity comorbidity presence: without serious comorbidity Encounter for routine adult health examination without abnormal findings Z00.00 Primary hypertension I10 Hypertension type: primary hypertension Rash and nonspecific skin eruption R21 Additional Codes JAIRO-7 Assessment Billing - JAIRO-7 Assessment Tool: JAIRO-7 Assessment 34708 ([id number]) Time Spent (min) 30 Assessment & Plan Assessment & Plan (1) Obesity: Code(s): E66.9 - Obesity, unspecified Category: Medical Qualifiers: Body mass index: BMI 50.0-59.9 Obesity classification: adult class 3 (BMI >= 40) Obesity type: due to excess calories Serious obesity comorbidity presence: without serious comorbidity Qualified Code(s): E66.813 - Obesity, class 3; E66.01 - Morbid (severe) obesity due to excess calories; Z68.43 - Body mass index [BMI] 50.0-59.9, adult Plan: Encouraged weight loss Healthy eating and exercise. (2) Encounter for routine adult health examination without abnormal findings: Code(s): Z00.00 - Encounter for general adult medical examination without abnormal findings Plan: Examination WNL (3) HTN (hypertension): Code(s): I10 - Essential (primary) hypertension Category: Medical Qualifiers: Hypertension type: primary hypertension Qualified Code(s): I10 - Essential (primary) hypertension Plan: Continue on current regiment (4) Rash and nonspecific skin eruption: Code(s): R21 - Rash and other nonspecific skin eruption Plan: Probably eczema. Ordered Steroid cream Pt has an upcoming appointment with his Derm Sep 2024. He will f/u with Derm then Medications: New 2 triamcinolone acetonide 0.5% 1 appl topical BID 14 days 15 grams 1RF R21 - Rash and other nonspecific skin eruption
== END 2024-07-25 08:59 | disposition home or self-care (01) ==
LOC: HO.HMCC 08:02
PROVIDERS: PCP Nurse Practitioner Family; Visit Provider Nurse Practitioner Family
DX: E66.813 Obesity, class 3 (principal); E66.01 Morbid (severe) obesity due to excess calories; Z68.43 Body mass index [BMI] 50.0-59.9, adult; Z00.00 Encounter for general adult medical examination without abnormal findings; I10 Essential (primary) hypertension; R21 Rash and other nonspecific skin eruption

== ENCOUNTER → 2024-07-25 08:01 | Outpatient (BNVA) | payer OTHER, SELFPAY | PROVIDERS: PCP Nurse Practitioner Family; Visit Provider Nurse Practitioner Family | DX: Z00.01 Encounter for general adult medical examination with abnormal findings (principal); E66.813 Obesity, class 3; E66.01 Morbid (severe) obesity due to excess calories; Z68.43 Body mass index [BMI] 50.0-59.9, adult; I10 Essential (primary) hypertension; R21 Rash and other nonspecific skin eruption; Z79.899 Other long term (current) drug therapy | CPT/HCPCS: 96127 ==

== ENCOUNTER 2024-12-01 08:03 | Outpatient (AMB) | payer OTHER, SELFPAY ==
[2024-12-01 08:07] VITALS: BP 130/82; PULSE 86; O2SAT 98; BMI 53.6
--- NOTE | 2024-12-01 08:07 | A.OFFVIS_ITS ---
Vital Signs 12/01/24 08:07 Height 5 ft 7 in Weight 342 lb BMI 53.6 BP 130/82 Blood Pressure Location Rt brachial Position Sitting Pulse 86 Pulse Source Pulse Oximeter Pulse Oximetry (%) 98 Oxygen Delivery Method Room Air Intake Visit Reasons: follow up PAOLA Intake Note: Patient presents follow up PAOLA. 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 The patient maintains 100% compliance with CPAP therapy, experiencing displacement of the mask during sleep leading to occasional leaks. There has been a 15 pounds weight gain noted since the original fitting of the CPAP mask but CPAP therapy remains effective with a residual apnea-hypopnea index (AHI) of 1.1. CPAP cleaning and maintenance habits are reported consistent. Current sleep is reportedly without significant daytime fatigue. Sleep- Typical bedtime varies; attempts to sleep by 10:30 PM - Arousal time around 5:30 to 6:00 AM due to cats; impact on completing a 7-hour sleep duration - Total sleep time aimed to average between 6?7 hours per night - Sleep interrupted by pets - No naps reported - Uses CPAP nightly, well-compliant with CPAP therapy parameters. Nutrition The patient's nutritional history includes a recent weight gain of approximately 15 pounds, primarily in the lower extremities and chest area, with little facial weight gain. The patient and spouse are attempting to work toward healthier eating and calorie management. There is no diabetes diagnosis, and dietary adjustments are ongoing, focusing on increasing consumption of whole foods such as fruits, vegetables, legumes, and whole grains. The patient occasionally consumes dark chocolate as a controlled dietary indulgence. No specific food allergies or restrictions are noted, and increased awareness of dietary patterns is being emphasized. Current CPAP usage and compliance report reviewed: Does patient have sufficient PAP supplies? Yes Does patient clean PAP supplies on a regular basis? Yes Does the patient use distilled water in their PAP machine water reservoir? Yes Current CPAP compliance report demonstrates optimal usage. Compliance report date range: August 26 2024 to November 23 2024 Overall usage: 100 percent Usage greater than 4 hours: 99 percent PAP setting: CPAP 13 cmH2O with EPR 3 Average usage on days used: 6 hours and 0 minutes Average mask leakage: 1.9 LPM Residual AHI: 1.1 per hour [facility] Medical History (Updated 12/01/24 @ 17:39 by FDAIA Nichols) Obesity, morbid, BMI 40.0-49.9 Gallstones Gallstone (impacted) Sleep apnea Low vitamin B12 level Anemia HTN (hypertension) Obesity Surgical History H/O hernia repair Hernia Cysts Family History Father No problems noted. Mother No problems noted. Brother No problems noted. Sister Healthy female Social History Housing: House Alcohol intake: current Alcohol intake frequency: holidays/special occasions only Patient Tobacco Use Status: Never used Tobacco e-Cigarette/Vaping Use: Never Used Second Hand Smoke Exposure: No Current occupational status: employed Current occupation: [employer] Current occupational exposures/hazards: No Cognitive needs: No Hearing needs: No Vision needs: No Physical Exam Vital Signs: Last Vital Signs Pulse 86 12/01/24 08:07 BP 130/82 12/01/24 08:07 Pulse Ox 98 12/01/24 08:07 Oxygen Delivery Method Room Air 12/01/24 08:07 BMI result Body Mass Index 53.6 Const General: no acute distress Orientation/consciousness: patient oriented x3 Resp Effort & Inspection: normal respiratory effort and able to speak in complete sentences Neuro General: patient oriented x3 Psych Mental Status: mental status grossly normal Speech and movement: Clear speech present Attitude: cooperative Assessment & Plan Assessment & Plan (1) Sleep apnea: Comment: Severe degree of sleep apena. The AHI was 34/hr and oxygen gautam was 89%. Code(s): G47.30 - Sleep apnea, unspecified Category: Medical (2) BMI 50.0-59.9, adult: Code(s): Z68.43 - Body mass index [BMI] 50.0-59.9, adult Category: Medical Plan Discussion Notes We reviewed the patient's current management of obstructive sleep apnea with CPAP therapy. The patient is compliant, but reports displacement of the mask during sleep leading to air leaks, which is primarily noted by his spouse. We discussed potential mask fitting adjustments and the possibility of switching to an F30 or F30i mask to address this issue. Discussions included the benefits of a well-fitted CPAP mask contributing to overall improved management of obstructive sleep apnea. Furthermore, the patient expressed concerns about weight gain, for which we reviewed dietary strategies and introduced the possibility of considering adjunctive pharmacotherapy, such as Zepbound, recently approved specifically for weight management in conjunction with sleep apnea for qualified individuals. Patient was informed and verbally consented to the use of an ambient scribe for clinic note documentation during this visit. Plan - Continue CPAP 13 cm H2O with EPR 3 nightly with a goal of greater than 4 hours nightly, as patient is experiencing good clinical effect from use. - We will request CPAP mask fitting and supplies through regional home [facility] - Clean and change PAP supplies routinely, including filters, masks, tubing, and water reservoir. - Use distilled water in PAP water reservoir. - Weight loss may reduce severity severe obstructive sleep apnea. - Advise weight management, dietary modification, regular physical activity, nd healthy lifestyle choices. - Consider trial of Zepbound after consulting primary care provider. Pt to follow-up in 12 months or sooner prn. Coding Level of Care Code Est Pt Level 3 (00710) Diagnoses Sleep apnea G47.30 BMI 50.0-59.9, adult Z68.43
--- OUTSIDE RECORDS SUMMARY | 2024-12-01 08:08 | XMS_ITS | Encounter Summary ---
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 Name Role Phone Shon Webb MD Primary Care Provider [phone] Encounter Details Date Type Department Care Team (Late st Contact Info) Description 05/10/2017 Conversion Encounter [facility] [address] [place] [address] Social History Tobacco Use Types Packs/Day Years Used Date Smoking Tobacco: Never Assessed Sex and Gender Information Value Date Recorded Sex Assigned at Not on file Legal Sex Male 4:27 PM EDT Gender Identity Not on file Sexual Orientation Not on file documented as of this encounter Plan of Treatment Not on file documented as of this encounter Visit Diagnoses Not on filedocumented in this encounter Care Teams Dielectric Machine Operator Relationship Specialty Start Date End Date Shon Webb MD [address] [place] [address] PCP - General 05/04/17 12/31/22 documented as of this encounter
--- OUTSIDE RECORDS SUMMARY | 2024-12-01 08:08 | XMS_ITS | Clinical Summary ---
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 Role Phone Unavailable Primary Care Provider Unavailabl e Immunizations Immunization Administration Dates Next Due DTaP 5 06/12/1996, 3,1991,10/23,1991 Hep B, ped/adol 05/30/2001,07/19/2000,05/24/2000 Hib (PRP-T) 09/30/1992, 2,1991,08/11 MMR 06/14/1995,10/10/1992 Meningococcal Conj (Menactra) MCV4P 03/19/2006 OPV 06/12/1998, 3,1991,08/11 Td (adult) (MBL), 2 Lf tetan us toxoid, PF, adsorbed 03/02/2003 Tdap 04/24/2008 Varicella 04/24/2008,06/14/1995 Family History Relation Name Status Comments Other Alive Family h/o: Ali ve and well Social History Tobacco Use Types Packs/Day Years Used Date Smoking Tobacco: Never Assessed Sex and Gender Information Value Date Recorded Sex Assigned at Not on file Legal Sex Male 4:27 PM EDT Gender Identity Not on file Sexual Orientation Not on file Plan of Treatment Health Maintenance Due Date Last Done Comments DTaP,Tdap,and Td Vaccines (7 - Td or Tdap) 04/24/2018 04/24/2008, 03/02/2003, 06/12/1996, Additional history exists Influenza Vaccines (#1) 2024 COVID-19 Vaccine ( season) 2024 HIB Vaccines Completed 09/30/1992, 11/23, 1991, Additional history exists MMR Vaccines Completed 06/14/1995, 10/10/1992 IPV Vaccines Completed 06/12/1998, 04/0 09/1992, 1991, Additional history exists Hepatitis B Vaccines Completed 05/30/2001, 07/19/2000, 05/24/2000 Meningococcal Vaccine Aged Out 03/19/2006 No solomon nancy eligible based on patient's age to complete this topic Varicella Vaccines Completed 04/24/2008, 06/14/1995 HPV Vaccines Aged Out No longer eligi ble based on patient's age to complete this topic Hepatitis A Vaccines Aged Out No long er eligible based on patient's age to complete this topic Men B Vaccine Aged Out No longer elig ible based on patient's age to complete this topic Pneumococcal Vaccine Aged Out No long er eligible based on patient's age to complete this topic
== END 2024-12-01 08:49 | disposition home or self-care (01) ==
PROVIDERS: PCP Nurse Practitioner Family; Visit Provider Nurse Practitioner Family
DX: G47.30 Sleep apnea, unspecified (principal); Z68.43 Body mass index [BMI] 50.0-59.9, adult
CPT/HCPCS: 99213

== ENCOUNTER → 2024-12-01 08:03 | Outpatient (BNVA) | payer OTHER, SELFPAY | PROVIDERS: PCP Nurse Practitioner Family; Visit Provider Nurse Practitioner Family | DX: E66.01 Morbid (severe) obesity due to excess calories (principal); G47.30 Sleep apnea, unspecified; R40.0 Somnolence; I10 Essential (primary) hypertension ==

== ENCOUNTER 2025-08-06 07:57 | Outpatient (AMB) | payer OTHER, SELFPAY ==
[2025-08-06 07:59] VITALS: BP 124/84; PULSE 95; RESP 16; TEMP 37.3; O2SAT 96; BMI 51.2
--- NOTE | 2025-08-06 07:59 | A.OFFPC_ITS ---
Vital Signs 08/06/25 07:59 Height 5 ft 7 in Weight 327 lb BMI 51.2 BP 124/84 Blood Pressure Location Lt brachial Position Sitting Respiration 16 Pulse 95 Pulse Source Pulse Oximeter Temp 99.1 F Temp Source Oral Pulse Oximetry (%) 96 Oxygen Delivery Method Room Air Intake Visit Reasons: PE Boiler Erector Required: No Accompanied by: Self / Same As Patient Allergies No Known Drug Allergies Allergy (Unknown, Verified 08/06/25 08:38) Unknown pollen Allergy (Severe, Uncoded 08/06/25 08:38) sneezing Medication List - Last Reconciled 08/06/25 by FADIA Lai- cetirizine (Zyrtec) 10 mg PO DAILY PRN lisinopril 40 mg PO DAILY 90 days multivitamin (Daily Multi-Vitamin tablet) 1 tab PO DAILY sildenafil 25 mg PO DAILY PRN 10 days triamcinolone acetonide 0.5% 1 appl topical BID 14 days Tobacco use date assessed: 08/06/25 Dental Screening Dental Screen Date: 08/06/25 Did you have a dental visit in the last 12 months?: Yes Did you have a dental problem in the last 6 months where you did not have access to dental care?: No Was dental information given to patient?: Patient has dentist HPI PE HPI Details History of Present Illness The patient is a 35-year-old male presenting for a physical exam. He reports doing quite well overall but is morbidly obese and is actively trying to lose weight. He is attempting to mimic his 's oral intake, as she is taking a GLP-1 agonist. Health Maintenance The patient will receive a flu vaccination at the pharmacy. Fasting labs will be ordered for the near future. Social History - Weight management: The patient is morb idly obese and actively attempting to lose weight. - Diet: He is trying to mimic his 's oral intake. Review of Systems - All other systems reviewed and are neg ative. The patient reports doing quite well overall. - Cardiovascular: Denies chest pain. - Respiratory: Denies shortness of breat h. - Gastrointestinal: Denies abdominal osmar n, blood in stool, constipation, and diarrhea. - Psychiatric: Denies suicidal or [place] ideation. Physical Exam General: Cooperative, healthy appearing, comfortable, no acute distress and well developed, though morbidly obese Orientation: Patient oriented x3 Limitations: No limitations Head: Normal to inspection Ears: Hearing grossly normal bilaterally Nose: Normal external nose present Face and sinus: Normal facial exam Eyes: Appearance normal, both eyes and all related structures Neck: Normal visual inspection and Yes full ROM Respiratory: Normal respiratory effort and able to speak in complete sentences. Clear to auscultation bilaterally Cardiovascular: Regular rate and rhythm. Normal S1 and S2 GI: Normal to inspection. Soft to palpation and nontender, though slight periumbilical hernia more supra umbilical : Testicles without masses/lesions and no hernias appreciated Skin: faint macular erythema to right gandhi Neuro: Patient oriented x3 Extremities: Normal to inspection, though more plus 1 edema by lower extremities Results Plan 1. Morbid Obesity The patient is morbidly obese, and weight loss is a primary goal. He will continue his active efforts to lose weight by modifying his oral intake, and fasting labs will be obtained in the near future. 2. Incidental Findings A small supraumbilical hernia, faint macular erythema on the right gandhi, and +1 edema in the lower extremities were noted on exam. These findings were documented with plans on weight loss. Discussion Notes I discussed with the patient that our primary goal is to actively work on weight loss for his morbid obesity. I informed him that we will be checking fasting labs and that he will get his flu vaccination at the pharmacy. Patient Instructions - Continue your efforts to lose weight b y following your new diet plan. - Please go to the lab for fasting blood work in the near future. - You can get your flu shot at the pharm [facility]. [facility] Medical History Obesity, morbid, BMI 40.0-49.9 Gallstones Gallstone (impacted) Sleep apnea Low vitamin B12 level Anemia HTN (hypertension) Obesity Surgical History H/O hernia repair Hernia Cysts Family History Father No problems noted. Mother No problems noted. Brother No problems noted. 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 1. Little interest or pleasure in doing things: not at all 2. Feeling down, depressed, or hopeless: not at all 3. Trouble falling or staying asleep, or sleeping too much: not at all 4. Feeling tired or having little energy: several days 5. Poor appetite or overeating: not at all 6. Feeling bad about yourself - or that you are a failure or have let yourself or your family down: not at all 7. Trouble concentrating on things, such as reading the newspaper or watching television: not at all 8. Moving or speaking so slowly that other people could have noticed. Or the opposite - being so fidgety or restless that you have been moving around a lot more than usual: not at all 9. Thoughts that you would be better off or of hurting yourself in some way: not at all Total score: 1 Depression Screening Interpretation: Negative Depression Screening Done: Yes 42310 - PHQ-9 Billing: Yes Source: Developed by Drs. Kuldeep Johnston, Sayda Mahoney, Campbell Guidry and colleagues, with an educational racheal from [employer]. Thrive Questionnaire Date Thrive assessed: 07/30/25 I am a: Patient What is your living situation today?: I have a steady place to live Within the past 12 months, did the food you bought not last and you didn't have the money to get more?: Never true Within the past 12 months, did you worry whether your food would run out before you got money to buy more?: Never true Do you have trouble paying for medicines?: No Do you have trouble getting transportation to medical appointments?: No Do you have trouble paying your heating and electricity bill?: No Do you have trouble taking care of your child, family member or friend?: No Do you have trouble with day-to-day activities such as bathing, preparing meals, shopping, managing finances, etc.?: No Are you currently unemployed and looking for a job?: No Are you interested in more education?: No Please select the resources that you would like help with: None Currently or been in a relationship where the following occur: No concerns reported THRIVE Score: 0 AUDIT C Alcohol Use Questionnaire (AUDIT-C) 1. How often do you have a drink containing alcohol?: 2-4 times a month 2. How many drinks containing alcohol do you have on a typical day when you are drinking?: 1 or 2 3. How often do you have six or more drinks on one occasion?: Never Total Score: 2 Score Reviewed/Action Taken: Yes JAIRO-7 AMB Questionnaire JAIRO-7 Date JAIRO - 7 assessed: 08/06/25 Feeling nervous, anxious, or on edge: 1 = Several days Not being able to stop or control worryin = Several days Worrying too much about different things: 0 = Not at all Trouble relaxin = Not at all Being so restless that it is hard to sit still: 0 = Not at all Becoming easily annoyed or irritable: 1 = Several days Feeling afraid as if something awful might happen: 0 = Not at all Total JAIRO-7 score (0-4 normal; 5-9 mild; 10-14 moderate; 15-21 severe): 3 Source: Developed by Drs. Kuldeep Johnston, Sayda Mahoney, Campbell Guidry and colleagues, with an educational racheal from [employer]. JAIRO-7 Assessment Billing JAIRO-7 Assessment Tool: JAIRO-7 Assessment 66978 Physical exam (Primary Care) Vital Signs: Last Vital Signs Temp 99.1 F 08/06/25 07:59 Pulse 95 08/06/25 07:59 Resp 16 08/06/25 07:59 BP 124/84 08/06/25 07:59 Pulse Ox 96 08/06/25 07:59 Oxygen Delivery Method Room Air 08/06/25 07:59 BMI result Body Mass Index 51.2 Tobacco/Smoking Status: Tobacco use Status Tobacco use date assessed 08/06/25 08/06/25 08:05 Patient Tobacco Use Status Never used Tobacco 08/06/25 08:05 e-Cigarette/Vaping Use Never Used 08/06/25 08:05 PHQ-9: PHQ-9 Score PHQ-9: Total score 1 08/06/25 08:05 Depression Screening Interpretation: Negative Thrive Assessment: Date of Thrive Assessment Date Thrive assessed 07/30/25 08/06/25 08:05 Currently or been in a relationship where the following occur: No concerns reported Coding Level of Care Code Est Pt Prev Care 18-39y(56437) Diagnoses Physical exam Z00.00 Additional Codes JAIRO-7 Assessment Billing - JAIRO-7 Assessment Tool: JAIRO-7 Assessment 80167 ([id number]) PHQ-9 - 87625 - PHQ-9 Billing: Yes ([id number]) Assessment & Plan Assessment & Plan (1) Physical exam: Code(s): Z00.00 - Encounter for general adult medical examination without abnormal findings Category: Medical Plan . Orders: Orders Complete Blood Count Auto Diff Today Z00.00 - Encounter for general adult medical examination without abnormal findings Comprehensive [place]. Panel Fast Today Z00.00 - Encounter for general adult medical examination without abnormal findings TSH reflex Free T4 Today Z00.00 - Encounter for general adult medical examination without abnormal findings UA CC w/rflx Micro + Cult Today Z00.00 - Encounter for general adult medical examination without abnormal findings Lipid Panel Today Z00.00 - Encounter for general adult medical examination without abnormal findings
--- OUTSIDE RECORDS SUMMARY | 2025-08-06 08:01 | XMS_ITS | Patient Health Record ---
Author Organization [facility] Address [address] [place] [address] Care Team Providers Care Middle School Counselor Name Role Phone Angela SPENCER, [phone] [place] [facility] Pro vider Unavailable Ran Ahumada Unavailable [phone] Allergies Allergen (clinical drug ingredient) Drug/Non Drug Allergy documented on EMR Reaction Allergy Type Onset Date Status Pollen Pollen (uncoded) Unknown Allergy Act jordyn Reason For Referral No Information Medications Medication SIG (Take, Route, Fr equency, Duration) Notes Start Date End Date Status Ammonium Lactate 12 % 1 application to a ffected area Externally Twice a day; Duration: 30 days Active Lisinopril 20 MG 1 tablet Orally Once a day Active Social History Tobacco Use: Social History Observation Description Date Details (start date - stop date) Never Smoker NA - NA Tobacco Use/Smoking Question Answer Notes Are you a: nonsmoker Additional Findings: Tobacco Non-User Current no n-smoker Alcohol Screen Question Answer Notes Did you have a drink containing alcohol in the p ast year? Yes Points 0 Interpretation Negative Tobacco use other than smoking: Question Answer Notes Are you an other tobacco user? No Plan Of Treatment No Information Insurance Providers Payer Name Payer Address Payer Phone Subscriber Number Group Number Insured Name Patient Relationship to Insured Coverage Start Date Coverage End Date [employer] [address] [place] [address] [phone] [id number] Le[address] Piper a Spouse - patient is the spouse of the insured Medical (General) History Medical History History ICD Code High blood pressure Surgical History Surgery Date(Month/Year) Hernia Repair 09/1991 pilonidal cyst excision 09/2010
--- OUTSIDE RECORDS SUMMARY | 2025-08-06 08:01 | XMS_ITS | Clinical Summary ---
Author Organization [facility] Address [address] [place] [address] Phone Care Team Providers Care Photogravure Press Operator Name Role Phone Unavailable Primary Care Provider [...] 04/24/2018 04/24/2008, 03/02/2003, 06/12/1996, Additional history exists HPV Vaccines (1 - 3-dose SCDM series) 2018 Influenza Vaccines (#1) 2025 COVID-19 Vaccine ( season) 2025 HIB Vaccines Completed 09/30/1992, 11/23, 1991, Additional history exists MMR Vaccines Completed 06/14/1995, 10/10/1992 IPV Vaccines Completed 06/12/1998, 0 09/1992, 1991, Additional history exists Hepatitis B Vaccines Completed 05/30/2001, 07/19/2000, 05/24/2000 Meningococcal Vaccine Aged Out 03/19/2006 No solomon nancy eligible based on patient's age to complete this topic Varicella Vaccines Completed 04/24/2008, 06/14/1995 Hepatitis A Vaccines Aged Out No long er eligible based on patient's age to complete this topic Men B Vaccine Aged Out No longer elig ible based on patient's age to complete this topic Pneumococcal Vaccine Aged Out No long er eligible based on patient's age to complete this topic
--- OUTSIDE RECORDS SUMMARY | 2025-08-06 08:01 | XMS_ITS | Encounter Summary ---
Author Organization [facility] Address [address] [place] [address] Phone Care Team Providers Care Hvac Design Mechanical Engineer Name Role Phone Shon Webb MD Primary Care Provider Anna stacy Encounter Details Date Type Department Care Team (Late st Contact Info) Description 05/10/2017 Conversion Encounter [facility] - [address] [address] Social History Tobacco Use Types Packs/Day Years [...] on filedocumented in this encounter Care Teams Hvac Design Mechanical Engineer Relationship Specialty Start Date End Date Shon Webb MD PCP - General 05/04/17 12/31/22 documented as of this encounter
== END 2025-08-06 08:33 | disposition home or self-care (01) ==
LOC: HO.HMCC 07:58
PROVIDERS: PCP Nurse Practitioner Family; Visit Provider Nurse Practitioner Family
DX: Z00.00 Encounter for general adult medical examination without abnormal findings (principal)

== ENCOUNTER → 2025-08-06 07:57 | Outpatient (BNVA) | payer OTHER, SELFPAY | PROVIDERS: PCP Nurse Practitioner Family; Visit Provider Nurse Practitioner Family | DX: Z00.00 Encounter for general adult medical examination without abnormal findings (principal); E66.01 Morbid (severe) obesity due to excess calories; R60.0 Localized edema; Z68.43 Body mass index [BMI] 50.0-59.9, adult | CPT/HCPCS: 96127 ==

== ENCOUNTER 2025-08-22 10:22 | Outpatient (REF) | payer OTHER, SELFPAY ==
--- OUTSIDE RECORDS SUMMARY | 2025-08-22 10:29 | XMS_ITS | Encounter Summary ---
Author Organization [facility] Address [address] [place] [address] Phone Care Team Providers Care High Wire Artist Name Role Phone Shon Webb MD Primary Care Provider Anna stacy Encounter Details Date Type Department Care Team (Late st Contact Info) Description 05/10/2017 Conversion Encounter [facility] - [address] [address] Social History Tobacco Use Types Packs/Day Years [...] on filedocumented in this encounter Care Teams High Wire Artist Relationship Specialty Start Date End Date Shon Webb MD PCP - General 05/04/17 12/31/22 documented as of this encounter
--- OUTSIDE RECORDS SUMMARY | 2025-08-22 10:29 | XMS_ITS | Patient Health Record ---
Author Organization [facility] Address [address] [place] [address] Care Team Providers Care Solar Power Installer Name Role Phone Angela SPENCER, [phone] [place] [facility] Pro vider Unavailable Ran Ahumada Unavailable [phone] Allergies Allergen (clinical drug ingredient) Drug/Non Drug Allergy documented on EMR Reaction Allergy Type Onset Date Status Information temporarily unavailable Pollen (uncoded) Unknown Allergy Active Reason For Referral No Information Medications Medication [...] Insured Coverage Start Date Coverage End Date [employer] [address] [place] [address] [phone] [id number] Piper a Spouse - patient is the spouse of the insured Medical (General) History Medical History History ICD Code High blood pressure Surgical History Surgery Date(Month/Year) Hernia Repair 09/1991 pilonidal cyst excision 09/2010
--- OUTSIDE RECORDS SUMMARY | 2025-08-22 10:30 | XMS_ITS | Clinical Summary ---
Author Organization [facility] Address [address] [place] [address] Phone Care Team Providers Care Wardrobe Mistress Name Role Phone Unavailable Primary Care Provider [...]
[2025-08-22 10:55] LABS: MANUAL DIFF FLAG NO
[2025-08-22 11:36] LABS: Hematocrit 40.6 % (42.0-52.0); Hemoglobin 13.8 g/dl (14.0-18.0); Imm Gran Abs Auto 0.02 X10*3/uL (0.00-0.03); Imm Gran Pct Auto 0.4 % (0.0-0.4); Lymphocytes Absolute Auto 1.7 X10*3/uL (1.2-4.9); Mean Corpuscular HGB Conc 34.0 g/dl (31.0-36.0); Mean Corpuscular Hemoglobin 27.3 pg (27.0-33.0); Mean Corpuscular Volume 80.2 fL (80.0-98.0); NRBC Abs Auto 0.000 X10*3/uL (0.0-0.012); NRBC Pct Auto 0.0 /100WBC (0.0-0.2); Platelet Count 206 X10*3/uL (160-400); Red Blood Count 5.06 X10*6/uL (4.60-5.80); White Blood Count 5.5 X10*3/uL (4.8-10.8)
[2025-08-22 11:50] LABS: Appearance Urine Clear; Glucose Urine UA Negative (Negative); PH 6.0 (5.0-9.0); Specific Gravity - Urine 1.015 (1.005-1.025)
[2025-08-22 12:16] LABS: Alanine Aminotransferase 73 U/L (0-40); Albumin Level 4.4 g/dL (3.5-5.0); Alkaline Phosphatase 71 U/L (39-117); Anion Gap 13 (12-20); Aspartate Amino Transferase 37 U/L (5-37); Blood Urea Nitrogen 12 mg/dL (9-16); Calcium 8.9 mg/dL (8.4-10.2); Carbon Dioxide 26 mmol/L (22-29); Chloride 105 mmol/L (96-108); Cholesterol 170 mg/dL (<200); Estimated Glomerular Filt Rate > 60; HDL Cholesterol 31 mg/dL (>40); Potassium 4.2 mmol/L (3.3-5.1); Sodium 140 mmol/L (135-145); Total Protein 7.1 g/dL (6.5-8.0); Triglycerides 115 mg/dL (<150)
== END 2025-08-22 10:23 | disposition home or self-care (01) ==
LOC: HO.LAB 10:22
PROVIDERS: PCP Nurse Practitioner Family; Visit Provider Nurse Practitioner Family
DX: Z00.00 Encounter for general adult medical examination without abnormal findings (principal); Z13.6 Encounter for screening for cardiovascular disorders; Z13.29 Encounter for screening for other suspected endocrine disorder
CPT/HCPCS: 36415; 80053; 80061; 81003; 84443; 85025